=== PATIENT | male | born 1960 | race Caucasian/White ===

== ENCOUNTER 2017-07-27 15:31 | Emergency (ER) | payer OTHER ==
[~2017-07-27] VITALS: Ht 170.2 cm; Wt 135.2 kg
[~2017-07-27 15:31] MED LIST: ACET325 PO; ACET500 PO; ALLERCLEAR10 MG PO; AMIT50 PO; AMLO10 PO; AMOCLA875 PO; ANTI ANXIETY; ASPI325 PO; ASPI81CH PO; ASPI81EC; ASPI81EC PO; Alprazolam0.5 MG PO; BACL10 PO; BACL20; BACL20 PO; BEPOTASTINE OU; BEPREVE; BEPREVE OU; BUPR150ER PO; BUTASPCAFT PO; Budeprion Xl300 MG PO; CEPH500 PO; CITA20; CITA20 PO; CLON.5 PO; CLON1 PO; CLOP75 PO; CLOT1TC TOP; COUMADIN; CRUTCH USE; CYCL10 PO; Cyclobenzaprine5 MG PO; DILT120ERA PO; DRON400T; DRON400T PO; DULO60 PO; DULOXETINE HCL60 MG PO; Desyrel50 MG PO; ENBREL; ETAN25I SC; ETAN50I INJ; ETAN50I SC; FLUT.05NI; FLUT220OIA IH; FLUT44OIA IH; Flonase 0.05% N16 GM; Flovent Diskus50 MCG IH; GABA300 PO; GEMF600; GEMF600 PO; GLIP5 PO; GLUC500 PO; GLUCOSAMINE-CH1 EAC3 PO; Glucosamine Ch1 EAC4 PO; HYDACE10B PO; HYDACE5; HYDACE5 PO; HYDACE5325 PO; HYDHCL25 PO; HYDPAM25 PO; Hair, Skin & N1 EACH PO; Hydrocodone-Ap1 EA20 PO; KETO10 PO; LATA.005SO; LATA.005SO BOTHEYES; LATA.005SO OD; LOPE2C PO; LORA.5 PO; LORA10 PO; LORA10ER PO; LOSHYD; Loratadine10 MG PO; MELO7.5 PO; MENS VITAMIN PO; METO10 PO; METO100ER PO; METO50 PO; METO50ER; METO50ER PO; MOMENI; MSM; MULTAQ; MULTIVITAMIN; MULVITMINE PO; MULVITMINF PO; Metoprolol Tar100 MG PO; Mobic15 MG PO; NORT25; NORT25 PO; NYST100TC TOP; Norco 5-325 Ta1 EACH PO; OLME20-12. PO; OMEG1CAP30 PO; OMEGA-3 ACID ETH1 GM PO; OMEP20ER PO; OMEP40CA12 PO; OXYACE5T PO; PANT20 PO; PRAV10 PO; PRAV20 PO; PRAVASTATIN SOD10 MG PO; PROM25 PO; Pantoprazole So20 MG PO; Pedi-Dri 100,0060 GM TOP; Percocet 5-3251 EACH PO; Prednisone20 MG PO; RANI150; RANI150 PO; RANI150EL; RXOXYACE PO; SIMV40 PO; SULTRIDS PO; TAMS.4ER PO; TIMDOROPSO BOTHEYES; TIMO.25OPS BOTHEYES; TIMOPTIC 0.25%1 EACH OP; TRAZ50; TRAZ50 PO; VICODIN ES 7.51 EACH PO; WARF1 PO; WARF10 PO; WARF2.5 PO; WARF7.5 PO; XARELTO10 MG PO; XARELTO20 MG PO; ZESTORETIC 20-1 EACH PO; ZESTORETIC 20-121 EA PO; [UNRECOGNIZED DRUG - OTHER]; [UNRECOGNIZED DRUG - OTHER]
[2017-07-27] MEDS ORDERED: COSENTYX P150 MG/1 M SQ (15:44)
[2017-07-27] MEDS ORDERED: HYDCHL25 PO (15:46)
[2017-07-27] MEDS ORDERED: GLIP5ER PO (15:46)
[2017-07-27] MEDS ORDERED: LISI20 PO (15:47)
[2017-07-27] MEDS ORDERED: DRON400T (15:49)
[2017-07-27] MEDS ORDERED: PANT20 PO (15:50)
[2017-07-27 16:11] LABS: BASOPHILS ABSOLUTE AUTO 0.08 K/mm3 (0.00-0.23); BASOPHILS PERCENT AUTO 1 % (0-2); EOSINOPHILS ABSOLUTE AUTO 0.31 K/mm3 (0.00-0.68); EOSINOPHILS PERCENT AUTO 3 % (0-6); Hematocrit 41.7 % (37.0-53.0); Hemoglobin 14.5 g/dL (13.5-17.5); IMMATURE GRAN ABSOLUTE AUTO 0.04 K/mm3 (0.00-0.10); IMMATURE GRAN PERCENT AUTO 0 % (0-1); LYMPHOCYTES ABSOLUTE AUTO 2.22 K/mm3 (0.84-5.20); LYMPHOCYTES PERCENT AUTO 24 % (21-46); MONOCYTES ABSOLUTE AUTO 0.96 K/mm3 (0.16-1.47); MONOCYTES PERCENT AUTO 10 % (4-13); Mean Corpuscular HGB 28.9 pg (26.0-34.0); Mean Corpuscular HGB Conc 34.8 g/dL (31.5-36.5); Mean Corpuscular Volume 83 fL (80-100); Mean Platelet Volume 10.5 fL (9.1-12.4); NEUTROPHILS ABSOLUTE AUTO 5.63 K/mm3 (1.96-9.15); NEUTROPHILS PERCENT AUTO 61 % (41-73); Platelet Count 265 K/mm3 (150-400); RDW Coefficient Variation 13.8 % (11.7-14.2); RDW Standard Deviation 41.8 fL (35.1-46.3); Red Blood Cell Count 5.01 M/mm3 (4.30-5.90); White Blood Cell Count 9.24 K/mm3 (4.00-11.30)
[2017-07-27 16:22] LABS: Alanine Aminotransfer (ALT/SGP 31 U/L (12-78); Albumin, Blood 4.1 g/dL (3.4-5.0); Albumin/Globulin Ratio 1.2 (0.8-1.8); Alk Phos 68 U/L (50-136); Anion Gap 9 mmol/L (6-16); Aspartate Aminotrans (AST/SGOT 21 U/L (12-37); Bilirubin, Total 0.6 mg/dL (0.1-1.0); Blood Urea Nitrogen 14 mg/dL (8-24); Bun/Creatinine Ratio 15.4 (12.0-20.0); CO2, Blood 27 mmol/L (21-32); Calcium, Blood 8.5 mg/dL (8.5-10.1); Chloride, Blood 103 mmol/L (98-108); Creatinine, Blood 0.91 mg/dL (0.60-1.20); Globulin, Blood 3.3 g/dL (2.2-4.0); Glomerular Filtration Rate >60 (60-); Glucose, Blood 177 mg/dL (70-99); Potassium, Blood 3.6 mmol/L (3.5-5.5); Sodium, Blood 139 mmol/L (136-145); Total Protein, Blood 7.4 g/dL (6.4-8.2); Troponin I <0.015 ng/mL (0.000-0.040)
[2017-07-27] MEDS ORDERED: SUCR1 PO (19:27)
== END 2017-07-27 20:06 | disposition home or self-care (01) ==
LOC: ER 15:31
PROVIDERS: Internal Medicine
DX: K22.4 Dyskinesia of esophagus (principal); I10 Essential (primary) hypertension; E11.9 Type 2 diabetes mellitus without complications; F32.9 Major depressive disorder, single episode, unspecified; F41.9 Anxiety disorder, unspecified; I48.91 Unspecified atrial fibrillation; F17.210 Nicotine dependence, cigarettes, uncomplicated; Z88.6 Allergy status to analgesic agent; Z79.899 Other long term (current) drug therapy; Z79.84 Long term (current) use of oral hypoglycemic drugs
CPT/HCPCS: 71046; 80053; 84484; 85025; 93005; 93010; 96374; 96375; 99283; C9113; J3490

== ENCOUNTER → 2017-08-09 | Outpatient (CLI) | payer OTHER ==
[~2017-08-09] MED LIST changes: +COSENTYX P150 MG/1 M SQ; +GLIP5ER PO; +HYDCHL25 PO; +LISI20 PO; +SUCR1 PO
[2017-08-09 13:10] LABS: Adenovirus F 40/41 Not Detected (NOT DETECT); Astrovirus Not Detected (NOT DETECT); Campylobacter Sp Not Detected (NOT DETECT); Cryptosporidium Not Detected (NOT DETECT); Cyclospora Cayetanensis Not Detected (NOT DETECT); E. Coli O157 Not Detected (NOT DETECT); Entamoeba Histolytica Not Detected (NOT DETECT); Enteroaggregative E. coli-EAEC Not Detected (NOT DETECT); Enteropathogenic E. coli-EPEC Not Detected (NOT DETECT); Enterotoxigenic E. coli-ETEC Not Detected (NOT DETECT); Giardia Lamblia Not Detected (NOT DETECT); Norovirus GI/GII Not Detected (NOT DETECT); Plesiomonas Shigelloides Not Detected (NOT DETECT); Rotavirus A Not Detected (NOT DETECT); Salmonella Sp Not Detected (NOT DETECT); Sapovirus Not Detected (NOT DETECT); Shiga Toxin-prod E. coli-STEC Not Detected (NOT DETECT); Shigella/Enteroin E. coli-EIEC Not Detected (NOT DETECT); Vibrio Cholerae Not Detected (NOT DETECT); Vibrio Sp Not Detected (NOT DETECT); Yersinia Enterocolitica Not Detected (NOT DETECT)
== END | disposition home or self-care (01) ==
LOC: LAB SHORT 12:33 → LAB 12:33 → LAB FUT 08-03 17:30
PROVIDERS: Hospitalist
DX: R19.7 Diarrhea, unspecified (principal)
CPT/HCPCS: 87507

== ENCOUNTER 2017-10-08 20:14 | Emergency (ER) | payer OTHER ==
[~2017-10-08] VITALS: Ht 172.7 cm; Wt 129.7 kg
[2017-10-08 20:58] LABS: BASOPHILS ABSOLUTE AUTO 0.14 K/mm3 (0.00-0.23); BASOPHILS PERCENT AUTO 1 % (0-2); EOSINOPHILS ABSOLUTE AUTO 0.39 K/mm3 (0.00-0.68); EOSINOPHILS PERCENT AUTO 4 % (0-6); Hematocrit 43.3 % (37.0-53.0); Hemoglobin 14.7 g/dL (13.5-17.5); IMMATURE GRAN ABSOLUTE AUTO 0.03 K/mm3 (0.00-0.10); IMMATURE GRAN PERCENT AUTO 0 % (0-1); LYMPHOCYTES ABSOLUTE AUTO 3.16 K/mm3 (0.84-5.20); LYMPHOCYTES PERCENT AUTO 33 % (21-46); MONOCYTES ABSOLUTE AUTO 0.99 K/mm3 (0.16-1.47); MONOCYTES PERCENT AUTO 10 % (4-13); Mean Corpuscular HGB 28.7 pg (26.0-34.0); Mean Corpuscular HGB Conc 33.9 g/dL (31.5-36.5); Mean Corpuscular Volume 84 fL (80-100); Mean Platelet Volume 10.5 fL (9.1-12.4); NEUTROPHILS ABSOLUTE AUTO 4.98 K/mm3 (1.96-9.15); NEUTROPHILS PERCENT AUTO 52 % (41-73); Platelet Count 302 K/mm3 (150-400); RDW Coefficient Variation 13.2 % (11.7-14.2); RDW Standard Deviation 41.2 fL (35.1-46.3); Red Blood Cell Count 5.13 M/mm3 (4.30-5.90); White Blood Cell Count 9.69 K/mm3 (4.00-11.30)
[2017-10-08 21:13] LABS: Alanine Aminotransfer (ALT/SGP 26 U/L (12-78); Albumin, Blood 3.8 g/dL (3.4-5.0); Albumin/Globulin Ratio 1.1 (0.8-1.8); Alk Phos 62 U/L (50-136); Anion Gap 8 mmol/L (6-16); Aspartate Aminotrans (AST/SGOT 17 U/L (12-37); Bilirubin, Total 0.5 mg/dL (0.1-1.0); Blood Urea Nitrogen 14 mg/dL (8-24); Bun/Creatinine Ratio 15.9 (12.0-20.0); CO2, Blood 29 mmol/L (21-32); Chloride, Blood 104 mmol/L (98-108); Creatinine, Blood 0.88 mg/dL (0.60-1.20); Globulin, Blood 3.6 g/dL (2.2-4.0); Glomerular Filtration Rate >60 (60-); Glucose, Blood 139 mg/dL (70-99); Sodium, Blood 141 mmol/L (136-145); Total Protein, Blood 7.4 g/dL (6.4-8.2); Troponin I <0.015 ng/mL (0.000-0.040)
[2017-10-08] MEDS ORDERED: MIRALAX17 GM PO (21:59)
[2017-10-08] MEDS ORDERED: Bentyl10 MG PO (21:59)
== END 2017-10-08 22:25 | disposition home or self-care (01) ==
LOC: ER 20:14
PROVIDERS: Emergency Medicine
DX: R10.9 Unspecified abdominal pain (principal); I10 Essential (primary) hypertension; E11.9 Type 2 diabetes mellitus without complications; F32.9 Major depressive disorder, single episode, unspecified; F41.9 Anxiety disorder, unspecified; I48.91 Unspecified atrial fibrillation; F17.210 Nicotine dependence, cigarettes, uncomplicated; Z88.6 Allergy status to analgesic agent; Z79.899 Other long term (current) drug therapy
CPT/HCPCS: 71046; 80053; 83690; 84484; 85025; 93005; 93010; 99285-25

== ENCOUNTER 2018-02-08 13:11 | Emergency (ER) | payer OTHER ==
[~2018-02-08] VITALS: Ht 177.8 cm; Wt 127.0 kg
[~2018-02-08 13:11] MED LIST changes: +Bentyl10 MG PO; -COSENTYX P150 MG/1 M SQ; -GLIP5ER PO; -HYDCHL25 PO; -LISI20 PO; +MIRALAX17 GM PO; -TAMS.4ER PO
[2018-02-08] MEDS ORDERED: Norco 5-325 Ta1 EACH PO (13:56)
== END 2018-02-08 14:09 | disposition home or self-care (01) ==
LOC: ER 13:11
DX: M54.5 Low back pain (principal); G89.29 Other chronic pain; Z88.6 Allergy status to analgesic agent; Z88.8 Allergy status to other drugs, medicaments and biological substances; Z79.899 Other long term (current) drug therapy; G43.909 Migraine, unspecified, not intractable, without status migrainosus; I10 Essential (primary) hypertension; E11.9 Type 2 diabetes mellitus without complications; F32.9 Major depressive disorder, single episode, unspecified; F41.9 Anxiety disorder, unspecified; I48.91 Unspecified atrial fibrillation; F17.210 Nicotine dependence, cigarettes, uncomplicated
CPT/HCPCS: 99283

== ENCOUNTER 2018-04-02 13:29 | Emergency (ER) | payer OTHER ==
[~2018-04-02] VITALS: Ht 177.8 cm; Wt 117.9 kg
[2018-04-02 14:22] LABS: BASOPHILS ABSOLUTE AUTO 0.13 K/mm3 (0.00-0.23); BASOPHILS PERCENT AUTO 1 % (0-2); EOSINOPHILS ABSOLUTE AUTO 0.41 K/mm3 (0.00-0.68); EOSINOPHILS PERCENT AUTO 3 % (0-6); Hematocrit 44.8 % (37.0-53.0); Hemoglobin 15.1 g/dL (13.5-17.5); IMMATURE GRAN ABSOLUTE AUTO 0.06 K/mm3 (0.00-0.10); IMMATURE GRAN PERCENT AUTO 1 % (0-1); LYMPHOCYTES ABSOLUTE AUTO 2.27 K/mm3 (0.84-5.20); LYMPHOCYTES PERCENT AUTO 17 % (21-46); MONOCYTES ABSOLUTE AUTO 1.03 K/mm3 (0.16-1.47); MONOCYTES PERCENT AUTO 8 % (4-13); Mean Corpuscular HGB Conc 33.7 g/dL (31.5-36.5); Mean Corpuscular Volume 86 fL (80-100); Mean Platelet Volume 10.2 fL (9.1-12.4); NEUTROPHILS ABSOLUTE AUTO 9.13 K/mm3 (1.96-9.15); NEUTROPHILS PERCENT AUTO 70 % (41-73); Platelet Count 294 K/mm3 (150-400); RDW Standard Deviation 44.4 fL (35.1-46.3); Red Blood Cell Count 5.21 M/mm3 (4.30-5.90); White Blood Cell Count 13.03 K/mm3 (4.00-11.30)
[2018-04-02 14:43] LABS: Anion Gap 10 mmol/L (6-16); Blood Urea Nitrogen 10 mg/dL (8-24); Bun/Creatinine Ratio 8.8 (12.0-20.0); CO2, Blood 25 mmol/L (21-32); Chloride, Blood 106 mmol/L (98-108); Creatinine, Blood 1.13 mg/dL (0.60-1.20); Glomerular Filtration Rate >60 (60-); Glucose, Blood 71 mg/dL (70-99); Sodium, Blood 141 mmol/L (136-145); Troponin I <0.015 ng/mL (0.000-0.040)
== END 2018-04-02 17:08 | disposition home or self-care (01) ==
LOC: ER 13:29
PROVIDERS: Physician Assistant
DX: J06.9 Acute upper respiratory infection, unspecified (principal); I10 Essential (primary) hypertension; F41.9 Anxiety disorder, unspecified; E11.9 Type 2 diabetes mellitus without complications; E78.5 Hyperlipidemia, unspecified; K21.9 Gastro-esophageal reflux disease without esophagitis; F17.210 Nicotine dependence, cigarettes, uncomplicated
CPT/HCPCS: 36415; 80048; 84484; 85025; 93005; 93010; 99283-25

== ENCOUNTER 2018-04-04 16:29 | Observation (INO) | payer OTHER ==
[~2018-04-04] VITALS: Ht 177.8 cm; Wt 122.5 kg
[2018-04-04 17:59] LABS: BASOPHILS PERCENT AUTO 1 % (0-2); EOSINOPHILS ABSOLUTE AUTO 0.45 K/mm3 (0.00-0.68); EOSINOPHILS PERCENT AUTO 4 % (0-6); Hematocrit 45.3 % (37.0-53.0); Hemoglobin 15.1 g/dL (13.5-17.5); IMMATURE GRAN ABSOLUTE AUTO 0.07 K/mm3 (0.00-0.10); IMMATURE GRAN PERCENT AUTO 1 % (0-1); LYMPHOCYTES ABSOLUTE AUTO 2.02 K/mm3 (0.84-5.20); LYMPHOCYTES PERCENT AUTO 18 % (21-46); MONOCYTES ABSOLUTE AUTO 0.97 K/mm3 (0.16-1.47); MONOCYTES PERCENT AUTO 9 % (4-13); Mean Corpuscular HGB 28.3 pg (26.0-34.0); Mean Corpuscular HGB Conc 33.3 g/dL (31.5-36.5); Mean Corpuscular Volume 85 fL (80-100); Mean Platelet Volume 10.6 fL (9.1-12.4); NEUTROPHILS ABSOLUTE AUTO 7.58 K/mm3 (1.96-9.15); NEUTROPHILS PERCENT AUTO 68 % (41-73); Platelet Count 279 K/mm3 (150-400); RDW Coefficient Variation 13.8 % (11.7-14.2); RDW Standard Deviation 42.7 fL (35.1-46.3); Red Blood Cell Count 5.33 M/mm3 (4.30-5.90); White Blood Cell Count 11.19 K/mm3 (4.00-11.30)
[2018-04-04 18:01] LABS: Source, Urine Clean Catch
[2018-04-04 18:10] LABS: Bilirubin, Urine Neg (Neg); Blood, Urine 4+ (Neg); Glucose Qualitative, Urine Neg (Neg); Ketones, Urine Neg (Neg); Leukocyte Esterase, Urine Neg (Neg); Nitrite, Urine Neg (Neg); Protein, Urine 2+ (Neg); Specific Gravity, Urine 1.015 (1.003-1.022); Urobilinogen, Urine NORM (Normal)
[2018-04-04 18:19] LABS: Salicylate <1.7 mg/dL (2.8-20.0)
[2018-04-04 18:20] LABS: Alanine Aminotransfer (ALT/SGP 29 U/L (12-78); Albumin, Blood 4.2 g/dL (3.4-5.0); Albumin/Globulin Ratio 1.2 (0.8-1.8); Alk Phos 60 U/L (50-136); Anion Gap 9 mmol/L (6-16); Aspartate Aminotrans (AST/SGOT 16 U/L (12-37); Bilirubin, Total 0.6 mg/dL (0.1-1.0); Blood Urea Nitrogen 15 mg/dL (8-24); Bun/Creatinine Ratio 18.3 (12.0-20.0); CO2, Blood 27 mmol/L (21-32); Calcium, Blood 8.7 mg/dL (8.5-10.1); Chloride, Blood 102 mmol/L (98-108); Creatinine, Blood 0.82 mg/dL (0.60-1.20); Globulin, Blood 3.6 g/dL (2.2-4.0); Glomerular Filtration Rate >60 (60-); Glucose, Blood 89 mg/dL (70-99); Potassium, Blood 3.8 mmol/L (3.5-5.5); Sodium, Blood 138 mmol/L (136-145); Total Protein, Blood 7.8 g/dL (6.4-8.2)
[2018-04-04 18:23] LABS: Acetaminophen, Random <2.0 ug/mL (10.0-30.0); Ethanol (Alcohol), Blood, Med <3 mg/dL
[2018-04-04 18:38] LABS: U Amphetamine Screen Not Detected; U Barbituate Screen Not Detected; U Benzodiazapine Screen Not Detected; U Buprenorphine Screen Not Detected; U Cannabinoids Screen Not Detected; U Cocaine Screen Not Detected; U Methadone Screen Not Detected; U Methamphetamine Screen Not Detected; U Opiates Screen Not Detected; U Oxycodone Screen Not Detected; U Phencyclidine Screen Not Detected; U Propoxyphene Screen Not Detected
[2018-04-04 18:46] LABS: Appearance, Urine Clear (Clear); Color, Urine Yellow (P-Yellow)
[2018-04-04 18:47] LABS: Bacteria Rare /hpf; Squamous Epithelial Cells Not Seen /hpf (Few); White Blood Cells, Urine Not Seen /hpf (0-5)
[2018-04-04] MEDS ORDERED: **INCOMPLETE MED REC (20:41)
[2018-04-04] MEDS ORDERED: TAMS.4ER PO (21:07)
[2018-04-04] MEDS ORDERED: COSENTYX P150 MG/1 M SQ (21:09)
[2018-04-04] MEDS ORDERED: LISI20 PO (21:11)
[2018-04-04] MEDS ORDERED: DRON400T PO (21:15)
[2018-04-04] MEDS ORDERED: Metoprolol Tar100 MG PO (21:16)
[2018-04-04] MEDS ORDERED: Zantac150 MG PO (21:17)
[2018-04-04] MEDS ORDERED: Loratadine10 MG PO (21:18)
[2018-04-04] MEDS ORDERED: GLIP5ER PO (21:19)
[2018-04-04] MEDS ORDERED: Flonase 0.05% N16 GM (21:19)
[2018-04-04] MEDS ORDERED: PANT20 PO (21:19)
[2018-04-04] MEDS ORDERED: HYDCHL25 PO (21:20)
[2018-04-04] MEDS ORDERED: SUCR1 PO (21:21)
[2018-04-04] MEDS ORDERED: OMEG1CAP30 PO (21:22)
== END 2018-04-05 11:44 | disposition home or self-care (01) ==
LOC: ER 16:29 → EOR 16:30
PROVIDERS: Physician Assistant; ADMIT Emergency Medicine
DX: F33.2 Major depressive disorder, recurrent severe without psychotic features (principal); F41.9 Anxiety disorder, unspecified; I10 Essential (primary) hypertension; E78.5 Hyperlipidemia, unspecified; E11.9 Type 2 diabetes mellitus without complications; K21.9 Gastro-esophageal reflux disease without esophagitis; G47.30 Sleep apnea, unspecified; F17.210 Nicotine dependence, cigarettes, uncomplicated; Z79.899 Other long term (current) drug therapy; Z79.84 Long term (current) use of oral hypoglycemic drugs
CPT/HCPCS: 36415; 80053; 81001; 84443; 85025; 99285; C9113; G0378; G0480; Q3014

== ENCOUNTER 2018-07-09 13:40 | Emergency (ER) | payer OTHER ==
[~2018-07-09] VITALS: Ht 177.8 cm; Wt 117.9 kg
[~2018-07-09 13:40] MED LIST changes: +**INCOMPLETE MED REC; +COSENTYX P150 MG/1 M SQ; +GLIP5ER PO; +HYDCHL25 PO; +LISI20 PO; +TAMS.4ER PO; +Zantac150 MG PO
[2018-07-09 14:53] LABS: Alanine Aminotransfer (ALT/SGP 26 U/L (12-78); Albumin, Blood 3.9 g/dL (3.4-5.0); Albumin/Globulin Ratio 1.3 (0.8-1.8); Alk Phos 61 U/L (50-136); Anion Gap 8 mmol/L (6-16); Aspartate Aminotrans (AST/SGOT 17 U/L (12-37); Bilirubin, Total 0.5 mg/dL (0.1-1.0); Blood Urea Nitrogen 11 mg/dL (8-24); Bun/Creatinine Ratio 13.2 (12.0-20.0); CO2, Blood 25 mmol/L (21-32); Calcium, Blood 8.2 mg/dL (8.5-10.1); Chloride, Blood 108 mmol/L (98-108); Creatinine, Blood 0.83 mg/dL (0.60-1.20); Glomerular Filtration Rate >60 (60-); Glucose, Blood 66 mg/dL (70-99); Potassium, Blood 3.7 mmol/L (3.5-5.5); Sodium, Blood 141 mmol/L (136-145); Total Protein, Blood 6.9 g/dL (6.4-8.2)
[2018-07-09 15:26] LABS: BASOPHILS ABSOLUTE AUTO 0.09 K/mm3 (0.00-0.23); BASOPHILS PERCENT AUTO 1 % (0-2); EOSINOPHILS PERCENT AUTO 3 % (0-6); Hematocrit 40.8 % (37.0-53.0); Hemoglobin 13.9 g/dL (13.5-17.5); IMMATURE GRAN ABSOLUTE AUTO 0.06 K/mm3 (0.00-0.10); IMMATURE GRAN PERCENT AUTO 1 % (0-1); LYMPHOCYTES ABSOLUTE AUTO 1.95 K/mm3 (0.84-5.20); LYMPHOCYTES PERCENT AUTO 18 % (21-46); MONOCYTES PERCENT AUTO 8 % (4-13); Mean Corpuscular HGB 29.2 pg (26.0-34.0); Mean Corpuscular HGB Conc 34.1 g/dL (31.5-36.5); Mean Corpuscular Volume 86 fL (80-100); Mean Platelet Volume 11.2 fL (9.1-12.4); NEUTROPHILS ABSOLUTE AUTO 7.37 K/mm3 (1.96-9.15); NEUTROPHILS PERCENT AUTO 69 % (41-73); Platelet Count 303 K/mm3 (150-400); Red Blood Cell Count 4.76 M/mm3 (4.30-5.90); White Blood Cell Count 10.67 K/mm3 (4.00-11.30)
== END 2018-07-09 16:59 | disposition home or self-care (01) ==
LOC: ER 13:40
PROVIDERS: Physician Assistant
DX: R51 Headache (principal); I10 Essential (primary) hypertension; E78.5 Hyperlipidemia, unspecified; F41.9 Anxiety disorder, unspecified; E11.9 Type 2 diabetes mellitus without complications; K21.9 Gastro-esophageal reflux disease without esophagitis; F32.9 Major depressive disorder, single episode, unspecified; Z88.6 Allergy status to analgesic agent; Z88.8 Allergy status to other drugs, medicaments and biological substances; Z79.899 Other long term (current) drug therapy; Z87.891 Personal history of nicotine dependence
CPT/HCPCS: 36415; 70450; 80053; 85025; 96374; 96375; 99284-25; J1100; J1200; J1885; J2765; J7030

== ENCOUNTER 2018-12-16 09:45 | Day surgery (SDC) | payer OTHER ==
[~2018-12-16] VITALS: Ht 172.7 cm; Wt 129.0 kg
[~2018-12-16 09:45] MED LIST changes: +BISA5EC; +CLEM1.34 PO; +HYDR1TAB94 PO; +TRAZ100 PO
--- NOTE | 2018-12-16 12:40 | NUR ---
PT TO RECOVERY POST PROCEDURE. PT IS AWAKE AND ORIENTED, COOPERATIVE. PT DENIES CHEST PAIN/PRESSSURE POST PROCEDURE. MONITOR SR 80, B/P 128/67, AFEBRILE, SPO2 91-92% RA. R RADIAL SITE NO SWELLING/HEMATOMA, TR BAND IN PLACE. PT TAKING SIPS OF APPLE JUICE WITHOUT PROBLEM.
--- NOTE | 2018-12-16 14:15 | NUR ---
PT UP TO BATHROOM, SITE UNCHANGED WITH ACTIVITY.
--- NOTE | 2018-12-16 16:00 | NUR ---
PT DRESSED SELF WITHOUT ASSISTANCE, SITE UNCHANGED. TR BAND REMOVED, CLOTH DOT, WRITST IMMOBILIZER AND SLING IN PLACE-PER PT REQUEST; IV REMOVED-CANNULA INTACT.
--- NOTE | 2018-12-16 16:15 | NUR ---
PT RECEIVED DISCHARGE INSTRUCTIONS, MED LIST AND "AFTER CARE"INSTRUCTIONS; VERBALIZED GOOD UNDERSTANDING. PT LEFT FACILITY VIA W/C, CONDITION STABLE.
== END 2018-12-16 16:15 | disposition home or self-care (01) ==
LOC: MHTC 09:45
PROC: 4A023N7 Measurement of Cardiac Sampling and Pressure, Left Heart, Percutaneous Approach (ICD-10-PCS; principal; 2018-12-16)
PROC: B201YZZ Plain Radiography of Multiple Coronary Arteries using Other Contrast (ICD-10-PCS; principal; 2018-12-16)
PROC: B205YZZ Plain Radiography of Left Heart using Other Contrast (ICD-10-PCS; principal; 2018-12-16)
DX: I25.119 Atherosclerotic heart disease of native coronary artery with unspecified angina pectoris (principal); I10 Essential (primary) hypertension; E78.00 Pure hypercholesterolemia, unspecified; E66.01 Morbid (severe) obesity due to excess calories; G47.33 Obstructive sleep apnea (adult) (pediatric); G89.29 Other chronic pain; M25.569 Pain in unspecified knee; K76.0 Fatty (change of) liver, not elsewhere classified; R31.0 Gross hematuria; Z79.899 Other long term (current) drug therapy; Z88.6 Allergy status to analgesic agent; Z79.01 Long term (current) use of anticoagulants; Z87.891 Personal history of nicotine dependence; Z68.41 Body mass index [BMI] 40.0-44.9, adult; Z99.89 Dependence on other enabling machines and devices
CPT/HCPCS: 82947; 93458; 99152; 99153; C1769; C1894; J1644; J2250; J3010; J7030; Q9967

== ENCOUNTER 2019-02-25 14:46 | Emergency (ER) | payer OTHER ==
[~2019-02-25] VITALS: Ht 172.7 cm; Wt 113.4 kg
[2019-02-25 17:14] LABS: BASOPHILS PERCENT AUTO 1 % (0-2); EOSINOPHILS ABSOLUTE AUTO 0.23 K/mm3 (0.00-0.68); EOSINOPHILS PERCENT AUTO 2 % (0-6); Hematocrit 50.1 % (37.0-53.0); Hemoglobin 16.6 g/dL (13.5-17.5); IMMATURE GRAN ABSOLUTE AUTO 0.04 K/mm3 (0.00-0.10); IMMATURE GRAN PERCENT AUTO 0 % (0-1); LYMPHOCYTES ABSOLUTE AUTO 2.03 K/mm3 (0.84-5.20); LYMPHOCYTES PERCENT AUTO 21 % (21-46); MONOCYTES ABSOLUTE AUTO 0.92 K/mm3 (0.16-1.47); MONOCYTES PERCENT AUTO 9 % (4-13); Mean Corpuscular HGB 28.3 pg (26.0-34.0); Mean Corpuscular HGB Conc 33.1 g/dL (31.5-36.5); Mean Corpuscular Volume 86 fL (80-100); Mean Platelet Volume 10.9 fL (9.1-12.4); NEUTROPHILS ABSOLUTE AUTO 6.45 K/mm3 (1.96-9.15); NEUTROPHILS PERCENT AUTO 66 % (41-73); Platelet Count 303 K/mm3 (150-400); RDW Coefficient Variation 14.5 % (11.7-14.2); RDW Standard Deviation 45.2 fL (35.1-46.3); Red Blood Cell Count 5.86 M/mm3 (4.30-5.90); White Blood Cell Count 9.77 K/mm3 (4.00-11.30)
[2019-02-25 17:32] LABS: Anion Gap 6 mmol/L (6-16); Blood Urea Nitrogen 12 mg/dL (8-24); Bun/Creatinine Ratio 14.9 (12.0-20.0); CO2, Blood 29 mmol/L (21-32); Calcium, Blood 8.8 mg/dL (8.5-10.1); Chloride, Blood 105 mmol/L (98-108); Glomerular Filtration Rate >60 (60-); Glucose, Blood 105 mg/dL (70-99); Potassium, Blood 3.5 mmol/L (3.5-5.5); Sodium, Blood 140 mmol/L (136-145)
[2019-02-25] MEDS ORDERED: Norco 5-325 Ta1 EACH PO (17:55)
[2019-02-25] MEDS ORDERED: Doxycycline Hy100 M3 PO (17:55)
== END 2019-02-25 18:07 | disposition home or self-care (01) ==
LOC: ER 14:46
PROVIDERS: Emergency Medicine
DX: K64.8 Other hemorrhoids (principal); N45.1 Epididymitis; I10 Essential (primary) hypertension; E78.5 Hyperlipidemia, unspecified; F41.9 Anxiety disorder, unspecified; E11.9 Type 2 diabetes mellitus without complications; K21.9 Gastro-esophageal reflux disease without esophagitis; F32.9 Major depressive disorder, single episode, unspecified; F17.210 Nicotine dependence, cigarettes, uncomplicated; Z79.899 Other long term (current) drug therapy
CPT/HCPCS: 36415; 46600; 76870; 80048; 85025; 96372-59; 96374-59; 99284-25; J0696; J1170

== ENCOUNTER 2019-05-14 17:35 | Emergency (ER) | payer OTHER ==
[~2019-05-14] VITALS: Ht 172.7 cm; Wt 122.5 kg
[~2019-05-14 17:35] MED LIST changes: +Doxycycline Hy100 M3 PO
[2019-05-14] MEDS ORDERED: Simvastatin40 MG PO (17:47)
[2019-05-14] MEDS ORDERED: Flomax0.4 MG PO (17:47)
[2019-05-14] MEDS ORDERED: TRAZ100 PO (17:47)
[2019-05-14] MEDS ORDERED: OMEP20ER PO (17:48)
[2019-05-14] MEDS ORDERED: ROCKLATAN 0.022.5 ML OP (17:48)
[2019-05-14] MEDS ORDERED: Zantac150 MG PO (17:48)
[2019-05-14] MEDS ORDERED: DRON400T (17:49)
[2019-05-14] MEDS ORDERED: NITR.4SL SL (17:49)
[2019-05-14] MEDS ORDERED: Loratadine10 MG PO (17:49)
[2019-05-14] MEDS ORDERED: GLIP5 PO (17:50)
[2019-05-14] MEDS ORDERED: HYDCHL25 PO (17:50)
[2019-05-14] MEDS ORDERED: HYDROCODONE-AC1 EAC1 PO (17:50)
[2019-05-14] MEDS ORDERED: COSENTYX P150 MG/1 M SQ (17:51)
[2019-05-14] MEDS ORDERED: CLON.5 PO (17:52)
[2019-05-14] MEDS ORDERED: XARELTO20 MG PO (17:52)
[2019-05-14] MEDS ORDERED: BACL20 PO (17:52)
[2019-05-14] MEDS ORDERED: OLOP.1OPSO BOTHEYES (17:53)
[2019-05-14] MEDS ORDERED: METO100 PO (17:53)
[2019-05-14] MEDS ORDERED: LISI20 PO (17:53)
[2019-05-14] MEDS ORDERED: PANT20 PO (17:53)
[2019-05-14] MEDS ORDERED: CARTIVISC TABL1 EACH PO (17:54)
[2019-05-14] MEDS ORDERED: DULO60 PO (17:54)
[2019-05-14] MEDS ORDERED: BRIMONIDINE TART5 ML BOTHEYES (17:55)
[2019-05-14 18:05] LABS: BASOPHILS ABSOLUTE AUTO 0.15 K/mm3 (0.00-0.23); BASOPHILS PERCENT AUTO 1 % (0-2); EOSINOPHILS ABSOLUTE AUTO 0.32 K/mm3 (0.00-0.68); EOSINOPHILS PERCENT AUTO 2 % (0-6); Hematocrit 52.6 % (37.0-53.0); Hemoglobin 17.5 g/dL (13.5-17.5); IMMATURE GRAN ABSOLUTE AUTO 0.05 K/mm3 (0.00-0.10); IMMATURE GRAN PERCENT AUTO 0 % (0-1); LYMPHOCYTES ABSOLUTE AUTO 2.41 K/mm3 (0.84-5.20); LYMPHOCYTES PERCENT AUTO 18 % (21-46); MONOCYTES ABSOLUTE AUTO 1.24 K/mm3 (0.16-1.47); MONOCYTES PERCENT AUTO 9 % (4-13); Mean Corpuscular HGB 28.5 pg (26.0-34.0); Mean Corpuscular HGB Conc 33.3 g/dL (31.5-36.5); Mean Corpuscular Volume 86 fL (80-100); Mean Platelet Volume 10.7 fL (9.1-12.4); NEUTROPHILS ABSOLUTE AUTO 9.46 K/mm3 (1.96-9.15); NEUTROPHILS PERCENT AUTO 69 % (41-73); Platelet Count 314 K/mm3 (150-400); RDW Coefficient Variation 14.7 % (11.7-14.2); RDW Standard Deviation 46.5 fL (35.1-46.3); Red Blood Cell Count 6.13 M/mm3 (4.30-5.90); White Blood Cell Count 13.63 K/mm3 (4.00-11.30)
[2019-05-14 18:24] LABS: Alanine Aminotransfer (ALT/SGP 27 U/L (12-78); Albumin, Blood 4.2 g/dL (3.4-5.0); Albumin/Globulin Ratio 1.1 (0.8-1.8); Alk Phos 74 U/L (50-136); Anion Gap 2 mmol/L (6-16); Aspartate Aminotrans (AST/SGOT 29 U/L (12-37); Bilirubin, Total 0.5 mg/dL (0.1-1.0); Blood Urea Nitrogen 14 mg/dL (8-24); Bun/Creatinine Ratio 15.6 (12.0-20.0); CO2, Blood 33 mmol/L (21-32); Calcium, Blood 9.3 mg/dL (8.5-10.1); Chloride, Blood 106 mmol/L (98-108); Globulin, Blood 3.7 g/dL (2.2-4.0); Glomerular Filtration Rate >60 (60-); Glucose, Blood 102 mg/dL (70-99); Potassium, Blood 3.8 mmol/L (3.5-5.5); Sodium, Blood 141 mmol/L (136-145); Total Protein, Blood 7.9 g/dL (6.4-8.2); Troponin I <0.015 ng/mL (0.000-0.040)
== END 2019-05-14 19:01 | disposition left against medical advice (07) ==
LOC: ER 17:35
PROVIDERS: Emergency Medicine
DX: K52.9 Noninfective gastroenteritis and colitis, unspecified (principal); K59.00 Constipation, unspecified; D72.829 Elevated white blood cell count, unspecified; I10 Essential (primary) hypertension; I48.91 Unspecified atrial fibrillation; E11.9 Type 2 diabetes mellitus without complications; E78.5 Hyperlipidemia, unspecified; F41.9 Anxiety disorder, unspecified; K21.9 Gastro-esophageal reflux disease without esophagitis; F32.9 Major depressive disorder, single episode, unspecified; G43.909 Migraine, unspecified, not intractable, without status migrainosus; G47.30 Sleep apnea, unspecified; Z88.6 Allergy status to analgesic agent; Z79.899 Other long term (current) drug therapy; Z79.84 Long term (current) use of oral hypoglycemic drugs; Z87.891 Personal history of nicotine dependence
CPT/HCPCS: 36415; 71045; 74176; 80053; 83690; 84484; 85025; 93005; 93010; 96374; 99284-25; J2405

== ENCOUNTER → 2019-07-25 | Outpatient (CLI) | payer OTHER ==
[~2019-07-25] MED LIST changes: +BRIMONIDINE TART5 ML BOTHEYES; +CARTIVISC TABL1 EACH PO; +Flomax0.4 MG PO; +HYDROCODONE-AC1 EAC1 PO; +METO100 PO; +NITR.4SL SL; +OLOP.1OPSO BOTHEYES; +ROCKLATAN 0.022.5 ML OP; +Simvastatin40 MG PO
[2019-08-01 14:48] LABS: Stool Occult Bld Immuno 1 Positive (NEGATIVE)
== END | disposition home or self-care (01) ==
LOC: LAB SHORT 12:00 → LAB 12:00
PROVIDERS: Family Medicine
DX: Z12.11 Encounter for screening for malignant neoplasm of colon (principal)
CPT/HCPCS: G0328

== ENCOUNTER → 2019-09-02 | Outpatient (CLI) | payer OTHER ==
[~2019-09-02] MED LIST changes: +ALLOPURINOL100 M1 PO; +BRIMONIDINE TART5 M2 BOTHEYES; +CLON.1 PO; +COSENTYX P150 MG/1 M SC; +Istalol2.5 ML BOTHEYES; +Klonopin0.5 MG PO; +LISI5 PO; +ROCKLATAN 0.022.5 M1 BOTHEYES
[2019-09-03 10:05] LABS: Stool Occult Bld Immuno 1 Positive (NEGATIVE)
== END | disposition home or self-care (01) ==
LOC: LAB SHORT 08:18 → LAB 08:18 → EDSTATUS 07-12 10:00 → LAB FUT 07-12 10:00
PROVIDERS: Family Medicine
DX: Z12.11 Encounter for screening for malignant neoplasm of colon (principal)
CPT/HCPCS: G0328

== ENCOUNTER 2019-09-09 13:46 | Observation (INO) | payer OTHER ==
[~2019-09-09] VITALS: Ht 172.7 cm; Wt 133.8 kg
[~2019-09-09 13:46] MED LIST changes: -ALLOPURINOL100 M1 PO; -BRIMONIDINE TART5 M2 BOTHEYES; -CLON.1 PO; -COSENTYX P150 MG/1 M SC; -Istalol2.5 ML BOTHEYES; -Klonopin0.5 MG PO; -LISI5 PO; -ROCKLATAN 0.022.5 M1 BOTHEYES
[2019-09-09] MEDS ORDERED: CLON.1 PO (17:50)
[2019-09-09] MEDS ORDERED: BRIMONIDINE TART5 M2 BOTHEYES (17:51)
[2019-09-09] MEDS ORDERED: LISI5 PO (17:51)
[2019-09-09] MEDS ORDERED: Loratadine10 MG PO (17:52)
[2019-09-09] MEDS ORDERED: ROCKLATAN 0.022.5 M1 BOTHEYES (17:52)
[2019-09-09] MEDS ORDERED: Istalol2.5 ML BOTHEYES (17:52)
[2019-09-09] MEDS ORDERED: Metoprolol Tar100 MG PO (17:53)
[2019-09-09] MEDS ORDERED: ALLOPURINOL100 M1 PO (17:53)
[2019-09-09] MEDS ORDERED: GLIP5ER PO (17:53)
[2019-09-09] MEDS ORDERED: Klonopin0.5 MG PO (17:53)
[2019-09-09] MEDS ORDERED: COSENTYX P150 MG/1 M SC (18:00)
[2019-09-09] MEDS ORDERED: DRON400T (18:00)
[2019-09-09] MEDS ORDERED: BACL20 PO (18:01)
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
[2019-09-10 04:19] LABS: BASOPHILS ABSOLUTE AUTO 0.15 K/mm3 (0.00-0.23); BASOPHILS PERCENT AUTO 1 % (0-2); EOSINOPHILS ABSOLUTE AUTO 0.31 K/mm3 (0.00-0.68); EOSINOPHILS PERCENT AUTO 2 % (0-6); Hematocrit 47.2 % (37.0-53.0); Hemoglobin 15.5 g/dL (13.5-17.5); IMMATURE GRAN ABSOLUTE AUTO 0.15 K/mm3 (0.00-0.10); IMMATURE GRAN PERCENT AUTO 1 % (0-1); LYMPHOCYTES ABSOLUTE AUTO 2.22 K/mm3 (0.84-5.20); LYMPHOCYTES PERCENT AUTO 14 % (21-46); MONOCYTES ABSOLUTE AUTO 1.61 K/mm3 (0.16-1.47); MONOCYTES PERCENT AUTO 10 % (4-13); Mean Corpuscular HGB 28.5 pg (26.0-34.0); Mean Corpuscular HGB Conc 32.8 g/dL (31.5-36.5); Mean Corpuscular Volume 87 fL (80-100); Mean Platelet Volume 10.3 fL (9.1-12.4); NEUTROPHILS ABSOLUTE AUTO 11.04 K/mm3 (1.96-9.15); NEUTROPHILS PERCENT AUTO 71 % (41-73); Platelet Count 288 K/mm3 (150-400); RDW Coefficient Variation 14.4 % (11.7-14.2); RDW Standard Deviation 45.5 fL (35.1-46.3); Red Blood Cell Count 5.44 M/mm3 (4.30-5.90); White Blood Cell Count 15.48 K/mm3 (4.00-11.30)
[2019-09-10 04:39] LABS: Anion Gap 5 mmol/L (6-16); Blood Urea Nitrogen 22 mg/dL (8-24); Bun/Creatinine Ratio 23.9 (12.0-20.0); CO2, Blood 29 mmol/L (21-32); Calcium, Blood 8.8 mg/dL (8.5-10.1); Chloride, Blood 104 mmol/L (98-108); Creatinine, Blood 0.92 mg/dL (0.60-1.20); Glomerular Filtration Rate >60 (60-); Glucose, Blood 142 mg/dL (70-99); Potassium, Blood 4.2 mmol/L (3.5-5.5); Sodium, Blood 138 mmol/L (136-145)
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
--- NOTE | 2019-09-10 06:15 | NUR ---
PT REPORTING CHEST PAIN THIS MORNING 6/10. HX OF ANGINA AND REPORTS TAKING NITRO AT HOME PRN. PT REPORTS PAIN IS UNCHANGED FROM BASELINE. CALL PLACE TO HOSPITALIST TO OBTAIN HOME MED ORDER.
--- NOTE | 2019-09-10 17:29 | NUR ---
SUMMARY PT REPORTS ADEQUATE PAIN CONTROL WITH PO MEDS, CURRENTLY RATES 2/10. PT IS 2 PERSON ASSIST, NEEDS REMINDER OF TOE TOUCH WEIGHT BEARING STATUS. PATIENT IS AGREEABLE WITH PLAN TO DISCHARGE TO SNF
[2019-09-11 05:19] LABS: BASOPHILS PERCENT AUTO 1 % (0-2); EOSINOPHILS ABSOLUTE AUTO 0.31 K/mm3 (0.00-0.68); EOSINOPHILS PERCENT AUTO 3 % (0-6); Hematocrit 45.4 % (37.0-53.0); IMMATURE GRAN ABSOLUTE AUTO 0.09 K/mm3 (0.00-0.10); IMMATURE GRAN PERCENT AUTO 1 % (0-1); LYMPHOCYTES ABSOLUTE AUTO 1.98 K/mm3 (0.84-5.20); LYMPHOCYTES PERCENT AUTO 16 % (21-46); MONOCYTES ABSOLUTE AUTO 1.23 K/mm3 (0.16-1.47); MONOCYTES PERCENT AUTO 10 % (4-13); Mean Corpuscular HGB 28.5 pg (26.0-34.0); Mean Corpuscular Volume 86 fL (80-100); Mean Platelet Volume 10.5 fL (9.1-12.4); NEUTROPHILS ABSOLUTE AUTO 8.48 K/mm3 (1.96-9.15); NEUTROPHILS PERCENT AUTO 70 % (41-73); Platelet Count 273 K/mm3 (150-400); RDW Coefficient Variation 14.2 % (11.7-14.2); RDW Standard Deviation 45.2 fL (35.1-46.3); Red Blood Cell Count 5.27 M/mm3 (4.30-5.90); White Blood Cell Count 12.19 K/mm3 (4.00-11.30)
--- NOTE | 2019-09-11 05:26 | NUR ---
SHIFT SUMMARY AA0X4. MEDICATED FOR PAIN X1 PER EMAR. PT STATES RELIEF T/O NIGHT. PATIENT HAS BEEN ASLEEP IN HIS ROOM. NO BRUISING NOTED. PPX4. PT MOVES LEG IN BED AND REPOSITIONS FREQUENTLY. PLAN IS FOR SNF TODAY.
[2019-09-11 05:50] LABS: Anion Gap 7 mmol/L (6-16); Blood Urea Nitrogen 23 mg/dL (8-24); Bun/Creatinine Ratio 21.9 (12.0-20.0); CO2, Blood 26 mmol/L (21-32); Calcium, Blood 8.5 mg/dL (8.5-10.1); Chloride, Blood 104 mmol/L (98-108); Creatinine, Blood 1.05 mg/dL (0.60-1.20); Glomerular Filtration Rate >60 (60-); Glucose, Blood 153 mg/dL (70-99); Potassium, Blood 3.8 mmol/L (3.5-5.5); Sodium, Blood 137 mmol/L (136-145)
--- NOTE | 2019-09-11 15:45 | NUR ---
PT'S NIECE WAS CONTACTED REGARDING PT'S HOME CPAP. SHE REPORTED SHE WILL BRING HIS CPAP TO HIM SO HE CAN GO TO SNF.
--- NOTE | 2019-09-11 17:19 | NUR ---
DISCHARGE REPORT CALLED TO MARLON AT [facility]. PACKET AND PRESCRIPTIONS WERE SENT WITH PT TO [facility]. MARLON WAS NOTIFIED THAT PT HAD NOT HAD A BM BUT HAD BEEN STARTED ON STOOL SOFTENERS. VSS. PT LEFT WITH WHEELCHAIR TRANSPORT.
== END 2019-09-11 17:17 ==
LOC: ER 13:46 → SURS 13:47
PROVIDERS: Internal Medicine; Nurse Practitioner Acute Care; ADMIT Internal Medicine
DX: S32.435A Nondisplaced fracture of anterior column [iliopubic] of left acetabulum, initial encounter for closed fracture (principal); S32.412A Displaced fracture of anterior wall of left acetabulum, initial encounter for closed fracture; S32.422A Displaced fracture of posterior wall of left acetabulum, initial encounter for closed fracture; I10 Essential (primary) hypertension; G47.33 Obstructive sleep apnea (adult) (pediatric); Z11.59 Encounter for screening for other viral diseases; E11.9 Type 2 diabetes mellitus without complications; E78.5 Hyperlipidemia, unspecified; F17.210 Nicotine dependence, cigarettes, uncomplicated; M51.36 Other intervertebral disc degeneration, lumbar region; M51.37 Other intervertebral disc degeneration, lumbosacral region; E66.01 Morbid (severe) obesity due to excess calories; V13.4XXA Pedal cycle driver injured in collision with car, pick-up truck or van in traffic accident, initial encounter; Z79.01 Long term (current) use of anticoagulants; Z79.899 Other long term (current) drug therapy; Z99.89 Dependence on other enabling machines and devices; K21.9 Gastro-esophageal reflux disease without esophagitis; Z88.6 Allergy status to analgesic agent; Z79.84 Long term (current) use of oral hypoglycemic drugs; Z68.41 Body mass index [BMI] 40.0-44.9, adult
CPT/HCPCS: 36415; 72192; 80048; 82947; 85025; 94660; 94762; 97110; 97112; 97162; 97166; 97530; 97535; 99284-25; A9270-GY; G0378; U0002

== ENCOUNTER 2019-12-01 13:45 | Emergency (ER) | payer OTHER ==
[~2019-12-01] VITALS: Ht 177.8 cm; Wt 117.9 kg
[~2019-12-01 13:45] MED LIST changes: -Flomax0.4 MG PO; -Simvastatin40 MG PO
[2019-12-01] MEDS ORDERED: Ranitidine HCl150 M1 PO (14:17)
[2019-12-01 14:22] LABS: BASOPHILS ABSOLUTE AUTO 0.12 K/mm3 (0.00-0.23); BASOPHILS PERCENT AUTO 1 % (0-2); EOSINOPHILS ABSOLUTE AUTO 0.43 K/mm3 (0.00-0.68); EOSINOPHILS PERCENT AUTO 4 % (0-6); Hematocrit 44.4 % (37.0-53.0); Hemoglobin 15.3 g/dL (13.5-17.5); IMMATURE GRAN ABSOLUTE AUTO 0.12 K/mm3 (0.00-0.10); IMMATURE GRAN PERCENT AUTO 1 % (0-1); LYMPHOCYTES ABSOLUTE AUTO 2.44 K/mm3 (0.84-5.20); LYMPHOCYTES PERCENT AUTO 21 % (21-46); MONOCYTES ABSOLUTE AUTO 1.14 K/mm3 (0.16-1.47); MONOCYTES PERCENT AUTO 10 % (4-13); Mean Corpuscular HGB 29.3 pg (26.0-34.0); Mean Corpuscular HGB Conc 34.5 g/dL (31.5-36.5); Mean Corpuscular Volume 85 fL (80-100); Mean Platelet Volume 10.1 fL (9.1-12.4); NEUTROPHILS ABSOLUTE AUTO 7.28 K/mm3 (1.96-9.15); NEUTROPHILS PERCENT AUTO 63 % (41-73); Platelet Count 328 K/mm3 (150-400); RDW Coefficient Variation 13.1 % (11.7-14.2); RDW Standard Deviation 40.5 fL (35.1-46.3); Red Blood Cell Count 5.22 M/mm3 (4.30-5.90); White Blood Cell Count 11.53 K/mm3 (4.00-11.30)
[2019-12-01 14:36] LABS: Alanine Aminotransfer (ALT/SGP 53 U/L (12-78); Albumin, Blood 3.5 g/dL (3.4-5.0); Albumin/Globulin Ratio 0.9 (0.8-1.8); Alk Phos 101 U/L (50-136); Anion Gap 11 mmol/L (6-16); Aspartate Aminotrans (AST/SGOT 33 U/L (12-37); Bilirubin, Total 0.4 mg/dL (0.1-1.0); Blood Urea Nitrogen 17 mg/dL (8-24); Bun/Creatinine Ratio 22.2 (12.0-20.0); CO2, Blood 24 mmol/L (21-32); Calcium, Blood 8.5 mg/dL (8.5-10.1); Chloride, Blood 99 mmol/L (98-108); Creatinine, Blood 0.77 mg/dL (0.60-1.20); Globulin, Blood 3.8 g/dL (2.2-4.0); Glomerular Filtration Rate >60 (60-); Glucose, Blood 379 mg/dL (70-99); Potassium, Blood 4.3 mmol/L (3.5-5.5); Prothrombin Time Results 10.7 Sec (9.7-11.5); Sodium, Blood 134 mmol/L (136-145); Total Protein, Blood 7.3 g/dL (6.4-8.2)
[2019-12-01] MEDS ORDERED: ROCKLATAN 0.022.5 M1 BOTHEYES (14:43)
[2019-12-01] MEDS ORDERED: CLON.1 PO (14:44)
[2019-12-01] MEDS ORDERED: DULO60 PO (14:44)
[2019-12-01] MEDS ORDERED: Simvastatin40 MG PO (14:44)
[2019-12-01] MEDS ORDERED: ALLOPURINOL100 M1 PO (14:44)
[2019-12-01] MEDS ORDERED: Metoprolol Tar100 MG PO (14:44)
[2019-12-01] MEDS ORDERED: GLIP5ER PO (14:44)
[2019-12-01] MEDS ORDERED: XARELTO20 MG PO (14:45)
[2019-12-01] MEDS ORDERED: TRAZ100 PO (14:45)
[2019-12-01] MEDS ORDERED: Istalol2.5 ML BOTHEYES (14:45)
[2019-12-01] MEDS ORDERED: BRIMONIDINE TART5 M2 BOTHEYES (14:45)
[2019-12-01] MEDS ORDERED: HYDCHL12.5 PO (14:46)
[2019-12-01] MEDS ORDERED: Flomax0.4 MG PO (14:46)
[2019-12-01] MEDS ORDERED: LISI5 PO (14:47)
[2019-12-01] MEDS ORDERED: Loratadine10 MG PO (16:41)
[2019-12-01] MEDS ORDERED: DRON400T PO (16:43)
[2019-12-01] MEDS ORDERED: COSENTYX P150 MG/1 M SC (16:45)
[2019-12-01] MEDS ORDERED: BACL20 PO (16:46)
[2019-12-01] MEDS ORDERED: OMEP20ER PO (16:46)
[2019-12-01] MEDS ORDERED: OMEGA-3 FISH O1 EAC6 PO (16:47)
[2019-12-01] MEDS ORDERED: NITR.4SL SL (16:47)
[2019-12-01] MEDS ORDERED: HYDROCODONE-AC1 EAC9 PO (16:48)
[2019-12-01] MEDS ORDERED: Klonopin0.5 MG PO ×2 (16:50→16:51)
[2019-12-01] MEDS ORDERED: TURMERIC500 M2 PO (16:51)
[2019-12-01] MEDS ORDERED: MULTI-VITAMIN1 EAC2 PO (16:52)
[2019-12-01] MEDS ORDERED: ACIDOPHILUS1 EAC3 PO (16:57)
[2019-12-01] MEDS ORDERED: FLUT.05NI (16:58)
[2019-12-01] MEDS ORDERED: OLOPATADINE HCL5 ML BOTHEYES (16:58)
[2019-12-01] MEDS ORDERED: CIDAFLEX TABLE1 EACH PO (17:00)
[2019-12-01 18:21] LABS: Magnesium, Blood 1.9 mg/dL (1.6-2.4); Troponin I <0.015 ng/mL (0.000-0.040)
== END 2019-12-01 18:55 | disposition home or self-care (01) ==
LOC: ER 13:45
PROVIDERS: Physician Assistant
DX: I48.91 Unspecified atrial fibrillation (principal); I10 Essential (primary) hypertension; E78.5 Hyperlipidemia, unspecified; F41.9 Anxiety disorder, unspecified; E11.9 Type 2 diabetes mellitus without complications; K21.9 Gastro-esophageal reflux disease without esophagitis; F32.9 Major depressive disorder, single episode, unspecified; F17.210 Nicotine dependence, cigarettes, uncomplicated; Z88.6 Allergy status to analgesic agent; Z79.01 Long term (current) use of anticoagulants; Z79.899 Other long term (current) drug therapy; Z79.84 Long term (current) use of oral hypoglycemic drugs
CPT/HCPCS: 80053; 83735; 84484; 85025; 85610; 92960; 93005; 93010; 99285-25; J7030

== ENCOUNTER 2020-01-31 12:05 | Emergency (ER) | payer OTHER ==
[~2020-01-31] VITALS: Ht 177.8 cm; Wt 117.9 kg
[~2020-01-31 12:05] MED LIST changes: +ACIDOPHILUS1 EAC3 PO; +ALLOPURINOL100 M1 PO; +BRIMONIDINE TART5 M2 BOTHEYES; +CIDAFLEX TABLE1 EACH PO; +CLON.1 PO; +COSENTYX P150 MG/1 M SC; +Flomax0.4 MG PO; +HYDCHL12.5 PO; +HYDROCODONE-AC1 EAC9 PO; +Istalol2.5 ML BOTHEYES; +Klonopin0.5 MG PO; +LISI5 PO; +MULTI-VITAMIN1 EAC2 PO; +OLOPATADINE HCL5 ML BOTHEYES; +OMEGA-3 FISH O1 EAC6 PO; +ROCKLATAN 0.022.5 M1 BOTHEYES; +Ranitidine HCl150 M1 PO; +Simvastatin40 MG PO; +TURMERIC500 M2 PO
[2020-01-31 12:33] LABS: BASOPHILS ABSOLUTE AUTO 0.12 K/mm3 (0.00-0.23); BASOPHILS PERCENT AUTO 1 % (0-2); EOSINOPHILS ABSOLUTE AUTO 0.36 K/mm3 (0.00-0.68); EOSINOPHILS PERCENT AUTO 3 % (0-6); Hematocrit 42.3 % (37.0-53.0); Hemoglobin 14.4 g/dL (13.5-17.5); IMMATURE GRAN ABSOLUTE AUTO 0.12 K/mm3 (0.00-0.10); IMMATURE GRAN PERCENT AUTO 1 % (0-1); LYMPHOCYTES ABSOLUTE AUTO 2.04 K/mm3 (0.84-5.20); LYMPHOCYTES PERCENT AUTO 19 % (21-46); MONOCYTES ABSOLUTE AUTO 0.95 K/mm3 (0.16-1.47); MONOCYTES PERCENT AUTO 9 % (4-13); Mean Corpuscular HGB 28.7 pg (26.0-34.0); Mean Corpuscular Volume 84 fL (80-100); Mean Platelet Volume 10.5 fL (9.1-12.4); NEUTROPHILS ABSOLUTE AUTO 7.19 K/mm3 (1.96-9.15); NEUTROPHILS PERCENT AUTO 67 % (41-73); Platelet Count 319 K/mm3 (150-400); RDW Coefficient Variation 13.1 % (11.7-14.2); RDW Standard Deviation 39.9 fL (35.1-46.3); Red Blood Cell Count 5.01 M/mm3 (4.30-5.90); White Blood Cell Count 10.78 K/mm3 (4.00-11.30)
[2020-01-31 12:53] LABS: Alanine Aminotransfer (ALT/SGP 42 U/L (12-78); Albumin, Blood 3.7 g/dL (3.4-5.0); Alk Phos 104 U/L (50-136); Anion Gap 6 mmol/L (6-16); Aspartate Aminotrans (AST/SGOT 30 U/L (12-37); Bilirubin, Total 0.4 mg/dL (0.1-1.0); Blood Urea Nitrogen 14 mg/dL (8-24); CO2, Blood 29 mmol/L (21-32); Chloride, Blood 99 mmol/L (98-108); Creatinine, Blood 0.74 mg/dL (0.60-1.20); Globulin, Blood 3.7 g/dL (2.2-4.0); Glomerular Filtration Rate >60 (60-); Glucose, Blood 342 mg/dL (70-99); Potassium, Blood 4.1 mmol/L (3.5-5.5); Sodium, Blood 134 mmol/L (136-145); Total Protein, Blood 7.4 g/dL (6.4-8.2); Troponin I <0.015 ng/mL (0.000-0.040)
== END 2020-01-31 13:16 | disposition home or self-care (01) ==
LOC: ER 12:05
PROVIDERS: Emergency Medicine
DX: R07.9 Chest pain, unspecified (principal); Z79.899 Other long term (current) drug therapy; Z79.01 Long term (current) use of anticoagulants; Z88.6 Allergy status to analgesic agent; Z79.84 Long term (current) use of oral hypoglycemic drugs
CPT/HCPCS: 36415; 71046; 80053; 84484; 85025; 93005; 93010; 99285-25

== ENCOUNTER 2020-04-12 17:29 | Emergency (ER) | payer OTHER ==
[~2020-04-12] VITALS: Ht 177.8 cm; Wt 117.9 kg
[2020-04-12 19:01] LABS: BASOPHILS ABSOLUTE AUTO 0.11 K/mm3 (0.00-0.23); BASOPHILS PERCENT AUTO 1 % (0-2); EOSINOPHILS ABSOLUTE AUTO 0.11 K/mm3 (0.00-0.68); EOSINOPHILS PERCENT AUTO 1 % (0-6); IMMATURE GRAN ABSOLUTE AUTO 0.06 K/mm3 (0.00-0.10); IMMATURE GRAN PERCENT AUTO 1 % (0-1); LYMPHOCYTES ABSOLUTE AUTO 1.63 K/mm3 (0.84-5.20); LYMPHOCYTES PERCENT AUTO 15 % (21-46); MONOCYTES ABSOLUTE AUTO 0.75 K/mm3 (0.16-1.47); MONOCYTES PERCENT AUTO 7 % (4-13); Mean Corpuscular HGB 28.4 pg (26.0-34.0); Mean Corpuscular Volume 84 fL (80-100); Mean Platelet Volume 10.2 fL (9.1-12.4); NEUTROPHILS ABSOLUTE AUTO 8.35 K/mm3 (1.96-9.15); NEUTROPHILS PERCENT AUTO 76 % (41-73); Platelet Count 365 K/mm3 (150-400); RDW Coefficient Variation 13.5 % (11.7-14.2); RDW Standard Deviation 41.1 fL (35.1-46.3); Red Blood Cell Count 5.98 M/mm3 (4.30-5.90); White Blood Cell Count 11.01 K/mm3 (4.00-11.30)
[2020-04-12 19:19] LABS: Alanine Aminotransfer (ALT/SGP 53 U/L (12-78); Albumin, Blood 4.1 g/dL (3.4-5.0); Albumin/Globulin Ratio 1.1 (0.8-1.8); Alk Phos 96 U/L (50-136); Anion Gap 6 mmol/L (6-16); Aspartate Aminotrans (AST/SGOT 28 U/L (12-37); Bilirubin, Total 0.8 mg/dL (0.1-1.0); Blood Urea Nitrogen 12 mg/dL (8-24); Bun/Creatinine Ratio 16.9 (12.0-20.0); CO2, Blood 27 mmol/L (21-32); Calcium, Blood 9.2 mg/dL (8.5-10.1); Chloride, Blood 101 mmol/L (98-108); Creatinine, Blood 0.71 mg/dL (0.60-1.20); Globulin, Blood 3.8 g/dL (2.2-4.0); Glomerular Filtration Rate >60 (60-); Glucose, Blood 247 mg/dL (70-99); Potassium, Blood 3.7 mmol/L (3.5-5.5); Sodium, Blood 134 mmol/L (136-145); Total Protein, Blood 7.9 g/dL (6.4-8.2); Troponin I <0.015 ng/mL (0.000-0.040)
== END 2020-04-12 21:19 | disposition home or self-care (01) ==
LOC: ER 17:29
PROVIDERS: Physician Assistant
DX: R07.89 Other chest pain (principal); F43.9 Reaction to severe stress, unspecified; Z88.6 Allergy status to analgesic agent; Z79.899 Other long term (current) drug therapy
CPT/HCPCS: 36415; 71046; 80053; 83880; 84484; 85025; 93005; 93010; 99285-25

== ENCOUNTER 2020-06-19 18:07 | Emergency (ER) | payer OTHER ==
[~2020-06-19] VITALS: Ht 172.7 cm; Wt 127.0 kg
[2020-06-19] MEDS ORDERED: TRAZ100 PO (18:41)
[2020-06-19] MEDS ORDERED: HYDROCHLOROTH12.5 MG PO (18:45)
[2020-06-19] MEDS ORDERED: PANT20 PO (18:49)
[2020-06-19] MEDS ORDERED: LISI20 (18:50)
[2020-06-19 19:11] LABS: BASOPHILS ABSOLUTE AUTO 0.14 K/mm3 (0.00-0.23); BASOPHILS PERCENT AUTO 1 % (0-2); EOSINOPHILS ABSOLUTE AUTO 0.31 K/mm3 (0.00-0.68); EOSINOPHILS PERCENT AUTO 2 % (0-6); Hematocrit 46.8 % (37.0-53.0); Hemoglobin 16.1 g/dL (13.5-17.5); IMMATURE GRAN ABSOLUTE AUTO 0.08 K/mm3 (0.00-0.10); IMMATURE GRAN PERCENT AUTO 1 % (0-1); LYMPHOCYTES ABSOLUTE AUTO 2.69 K/mm3 (0.84-5.20); LYMPHOCYTES PERCENT AUTO 21 % (21-46); MONOCYTES PERCENT AUTO 8 % (4-13); Mean Corpuscular HGB 28.5 pg (26.0-34.0); Mean Corpuscular HGB Conc 34.4 g/dL (31.5-36.5); Mean Corpuscular Volume 83 fL (80-100); NEUTROPHILS ABSOLUTE AUTO 8.93 K/mm3 (1.96-9.15); NEUTROPHILS PERCENT AUTO 68 % (41-73); Platelet Count 297 K/mm3 (150-400); RDW Coefficient Variation 13.2 % (11.7-14.2); RDW Standard Deviation 39.6 fL (35.1-46.3); Red Blood Cell Count 5.65 M/mm3 (4.30-5.90); White Blood Cell Count 13.15 K/mm3 (4.00-11.30)
[2020-06-19 19:43] LABS: Alanine Aminotransfer (ALT/SGP 31 U/L (12-78); Albumin, Blood 3.4 g/dL (3.4-5.0); Alk Phos 106 U/L (50-136); Anion Gap 5 mmol/L (6-16); Aspartate Aminotrans (AST/SGOT 15 U/L (12-37); Bilirubin, Total 0.4 mg/dL (0.1-1.0); Blood Urea Nitrogen 16 mg/dL (8-24); CO2, Blood 29 mmol/L (21-32); Calcium, Blood 8.8 mg/dL (8.5-10.1); Chloride, Blood 93 mmol/L (98-108); Creatinine, Blood 1.07 mg/dL (0.60-1.20); Globulin, Blood 3.5 g/dL (2.2-4.0); Glomerular Filtration Rate >60 (60-); Glucose, Blood 542 mg/dL (70-99); Sodium, Blood 127 mmol/L (136-145); Total Protein, Blood 6.9 g/dL (6.4-8.2); Troponin I <0.015 ng/mL (0.000-0.040)
== END 2020-06-19 23:00 | disposition home or self-care (01) ==
LOC: ER 18:07
PROVIDERS: Emergency Medicine
DX: R07.9 Chest pain, unspecified (principal); E11.65 Type 2 diabetes mellitus with hyperglycemia; Z88.6 Allergy status to analgesic agent; Z79.899 Other long term (current) drug therapy; Z79.84 Long term (current) use of oral hypoglycemic drugs; Z87.891 Personal history of nicotine dependence
CPT/HCPCS: 71046; 80053; 82947; 83735; 84484; 85025; 93005; 93010; 99285-25; J1815; J7030

== ENCOUNTER 2020-07-15 13:24 | Observation (INO) | payer OTHER ==
[~2020-07-15] VITALS: Ht 172.7 cm; Wt 124.5 kg
[~2020-07-15 13:24] MED LIST changes: +HYDROCHLOROTH12.5 MG PO; +LISI20
[2020-07-15 14:08] LABS: BASOPHILS ABSOLUTE AUTO 0.09 K/mm3 (0.00-0.23); BASOPHILS PERCENT AUTO 1 % (0-2); EOSINOPHILS ABSOLUTE AUTO 0.19 K/mm3 (0.00-0.68); EOSINOPHILS PERCENT AUTO 2 % (0-6); Hematocrit 45.4 % (37.0-53.0); Hemoglobin 15.4 g/dL (13.5-17.5); IMMATURE GRAN ABSOLUTE AUTO 0.06 K/mm3 (0.00-0.10); IMMATURE GRAN PERCENT AUTO 1 % (0-1); LYMPHOCYTES ABSOLUTE AUTO 1.89 K/mm3 (0.84-5.20); LYMPHOCYTES PERCENT AUTO 16 % (21-46); MONOCYTES ABSOLUTE AUTO 0.82 K/mm3 (0.16-1.47); MONOCYTES PERCENT AUTO 7 % (4-13); Mean Corpuscular HGB 29.1 pg (26.0-34.0); Mean Corpuscular HGB Conc 33.9 g/dL (31.5-36.5); Mean Corpuscular Volume 86 fL (80-100); Mean Platelet Volume 10.9 fL (9.1-12.4); NEUTROPHILS ABSOLUTE AUTO 8.68 K/mm3 (1.96-9.15); NEUTROPHILS PERCENT AUTO 74 % (41-73); Platelet Count 287 K/mm3 (150-400); RDW Coefficient Variation 13.8 % (11.7-14.2); RDW Standard Deviation 42.8 fL (35.1-46.3); White Blood Cell Count 11.73 K/mm3 (4.00-11.30)
[2020-07-15 14:16] LABS: Alanine Aminotransfer (ALT/SGP 31 U/L (12-78); Albumin, Blood 3.4 g/dL (3.4-5.0); Alk Phos 83 U/L (50-136); Anion Gap 4 mmol/L (6-16); Aspartate Aminotrans (AST/SGOT 25 U/L (12-37); Bilirubin, Total 0.3 mg/dL (0.1-1.0); Blood Urea Nitrogen 10 mg/dL (8-24); Bun/Creatinine Ratio 12.8 (12.0-20.0); CO2, Blood 29 mmol/L (21-32); Calcium, Blood 8.7 mg/dL (8.5-10.1); Chloride, Blood 101 mmol/L (98-108); Creatinine, Blood 0.78 mg/dL (0.60-1.20); Globulin, Blood 3.5 g/dL (2.2-4.0); Glomerular Filtration Rate >60 (60-); Glucose, Blood 185 mg/dL (70-99); Potassium, Blood 3.7 mmol/L (3.5-5.5); Sodium, Blood 134 mmol/L (136-145); Total Protein, Blood 6.9 g/dL (6.4-8.2); Troponin I <0.015 ng/mL (0.000-0.040)
[2020-07-15] MEDS ORDERED: METF500 PO (15:58)
[2020-07-15] MEDS ORDERED: GLIP10ER PO (15:59)
[2020-07-15] MEDS ORDERED: KLONOPIN0.5 M2 PO (15:59)
[2020-07-15] MEDS ORDERED: OMEP20ER PO (16:01)
--- NOTE | 2020-07-15 18:46 | NUR ---
SHIFT SUMMARY: ASSUMED CARE OF PATIENT AT 1714 UPON HIS ARRIVAL FROM ED. A&O X 4, [place], AMBULATES INDEPENDENTLY. DENIES PAIN AT THIS TIME. AWAITING TELEMETRY BOX. HAD DINNER TRAY. DENIES CHEST DISCOMFORT, SOB.
[2020-07-15 21:49] LABS: CPK Creatine Kinase 144 U/L (39-308); Creatine Kinase MB 1.8 ng/mL (0.0-3.6); Creatine Kinase MB Index 1.2 (0.0-4.0); Troponin I <0.015 ng/mL (0.000-0.040)
[2020-07-16 05:51] LABS: Hematocrit 47.9 % (37.0-53.0); Hemoglobin 15.9 g/dL (13.5-17.5); Mean Corpuscular HGB 28.1 pg (26.0-34.0); Mean Corpuscular HGB Conc 33.2 g/dL (31.5-36.5); Mean Corpuscular Volume 85 fL (80-100); Mean Platelet Volume 10.7 fL (9.1-12.4); Platelet Count 298 K/mm3 (150-400); RDW Coefficient Variation 13.7 % (11.7-14.2); RDW Standard Deviation 42.5 fL (35.1-46.3); Red Blood Cell Count 5.66 M/mm3 (4.30-5.90); White Blood Cell Count 10.53 K/mm3 (4.00-11.30)
[2020-07-16 06:04] LABS: Anion Gap 4 mmol/L (6-16); Blood Urea Nitrogen 10 mg/dL (8-24); Bun/Creatinine Ratio 13.9 (12.0-20.0); CHOL/HDL RATIO 4.8; CO2, Blood 29 mmol/L (21-32); CPK Creatine Kinase 120 U/L (39-308); Calcium, Blood 8.8 mg/dL (8.5-10.1); Chloride, Blood 106 mmol/L (98-108); Cholesterol 116 mg/dL (50-200); Creatine Kinase MB 1.6 ng/mL (0.0-3.6); Creatine Kinase MB Index 1.3 (0.0-4.0); Creatinine, Blood 0.72 mg/dL (0.60-1.20); Glomerular Filtration Rate >60 (60-); Glucose, Blood 168 mg/dL (70-99); HDL Cholesterol 24 mg/dL (>39); LDL/HDL RATIO 2.2; Low Density Lipoprotein Chol 54 mg/dL (0-110); Potassium, Blood 3.8 mmol/L (3.5-5.5); Sodium, Blood 139 mmol/L (136-145); Triglycerides 191 mg/dL (30-160); Troponin I <0.015 ng/mL (0.000-0.040); Very Low Density Lipoprot Chol 38 mg/dL (6-32)
--- NOTE | 2020-07-16 17:46 | NUR ---
PATIENT IS ALERT AND ORIENTED AND COOPERATIVE WITH CARE. PATIENT IS A CURRENT SMOKER AND HAS TRIED TO LEAVE MEDICAL FLOOR TO GO OUTSIDE TO SMOKE. THIS RN HAS EXPLAINED TO THE PATIENT THE HE CANNOT LEAVE THE MEDICAL FLOOR. PATIENT COMPLETED THE FIRST PART OF HIS STRESS TEST TODAY. HE IS INDEPENDENT IN THE ROOM. NO C/O CHEST PAIN TODAY. WILL CONTINUE TO MONITOR
--- NOTE | 2020-07-17 04:35 | NUR ---
SHIFT SUMMARY ASSUMED CARE OF PT AT 1900. PT IS A/OX4. HEART SOUNDS REGULAR, LUNG SOUNDS DIMINISHED ON THE L SIDE. PT WORE CPAP DURING THE NIGHT. PT IS INDEPENDENT IN THE ROOM. PT HAS BEEN NPO SINCE MIDNIGHT. DENIES CP. CALL LIGHT IN REACH, BED IN LOWEST POSTITION
[2020-07-17 05:12] LABS: Albumin, Blood 3.1 g/dL (3.4-5.0); Anion Gap 2 mmol/L (6-16); Blood Urea Nitrogen 11 mg/dL (8-24); CO2, Blood 31 mmol/L (21-32); Calcium, Blood 8.5 mg/dL (8.5-10.1); Chloride, Blood 105 mmol/L (98-108); Creatinine, Blood 0.78 mg/dL (0.60-1.20); Glomerular Filtration Rate >60 (60-); Glucose, Blood 145 mg/dL (70-99); Potassium, Blood 3.8 mmol/L (3.5-5.5); Sodium, Blood 138 mmol/L (136-145)
[2020-07-17] MEDS ORDERED: NITR.4SL SL (12:45)
[2020-07-17] MEDS ORDERED: ATOR20 PO (12:48)
--- NOTE | 2020-07-17 13:22 | NUR ---
PATIENT D/C'D VIA [facility] RX MEDICATIONS SENT TO [facility]. DC INSTRUCTIONS AND EDUCATION DISCUSSED WITH PATIENT AND COPY PROVIDED. PATIENT DENIES ANY FURTHER QUESTIONS OR CONCERNS.
== END 2020-07-17 13:30 | disposition home or self-care (01) ==
LOC: ER 13:24 → MEDS 13:25
PROVIDERS: Emergency Medicine; ADMIT Internal Medicine
DX: R07.9 Chest pain, unspecified (principal); I25.10 Atherosclerotic heart disease of native coronary artery without angina pectoris; I48.20 Chronic atrial fibrillation, unspecified; E11.9 Type 2 diabetes mellitus without complications; E78.1 Pure hyperglyceridemia; G47.33 Obstructive sleep apnea (adult) (pediatric); J44.9 Chronic obstructive pulmonary disease, unspecified; E66.01 Morbid (severe) obesity due to excess calories; K21.9 Gastro-esophageal reflux disease without esophagitis; F41.8 Other specified anxiety disorders; M10.9 Gout, unspecified; L40.50 Arthropathic psoriasis, unspecified; Z79.01 Long term (current) use of anticoagulants; Z68.41 Body mass index [BMI] 40.0-44.9, adult
CPT/HCPCS: 36415; 71045; 78452; 80048; 80053; 80061; 80069; 82550; 82553; 82947; 83036; 84484; 85025; 85027; 93005; 93010; 93017; 94660; 94762; 99285-25; A9270; A9500; G0378; J2785

== ENCOUNTER 2020-07-30 10:22 | Emergency (ER) | payer OTHER ==
[~2020-07-30] VITALS: Ht 177.8 cm; Wt 122.5 kg
[~2020-07-30 10:22] MED LIST changes: +ATOR20 PO; +GLIP10ER PO; +KLONOPIN0.5 M2 PO; +METF500 PO
[2020-07-30 10:46] LABS: BASOPHILS PERCENT AUTO 1 % (0-2); EOSINOPHILS ABSOLUTE AUTO 0.38 K/mm3 (0.00-0.68); EOSINOPHILS PERCENT AUTO 3 % (0-6); Hematocrit 46.5 % (37.0-53.0); Hemoglobin 15.5 g/dL (13.5-17.5); IMMATURE GRAN ABSOLUTE AUTO 0.05 K/mm3 (0.00-0.10); IMMATURE GRAN PERCENT AUTO 0 % (0-1); LYMPHOCYTES ABSOLUTE AUTO 1.74 K/mm3 (0.84-5.20); LYMPHOCYTES PERCENT AUTO 15 % (21-46); MONOCYTES ABSOLUTE AUTO 0.85 K/mm3 (0.16-1.47); MONOCYTES PERCENT AUTO 7 % (4-13); Mean Corpuscular HGB 27.8 pg (26.0-34.0); Mean Corpuscular HGB Conc 33.3 g/dL (31.5-36.5); Mean Corpuscular Volume 84 fL (80-100); Mean Platelet Volume 10.4 fL (9.1-12.4); NEUTROPHILS ABSOLUTE AUTO 8.76 K/mm3 (1.96-9.15); NEUTROPHILS PERCENT AUTO 74 % (41-73); Platelet Count 312 K/mm3 (150-400); RDW Coefficient Variation 14.3 % (11.7-14.2); RDW Standard Deviation 43.4 fL (35.1-46.3); Red Blood Cell Count 5.57 M/mm3 (4.30-5.90); White Blood Cell Count 11.88 K/mm3 (4.00-11.30)
[2020-07-30 11:10] LABS: Alanine Aminotransfer (ALT/SGP 30 U/L (12-78); Albumin, Blood 3.6 g/dL (3.4-5.0); Alk Phos 82 U/L (50-136); Anion Gap 6 mmol/L (6-16); Aspartate Aminotrans (AST/SGOT 20 U/L (12-37); Bilirubin, Total 0.4 mg/dL (0.1-1.0); Blood Urea Nitrogen 15 mg/dL (8-24); Bun/Creatinine Ratio 21.8 (12.0-20.0); CO2, Blood 25 mmol/L (21-32); Calcium, Blood 8.7 mg/dL (8.5-10.1); Chloride, Blood 107 mmol/L (98-108); Creatinine, Blood 0.69 mg/dL (0.60-1.20); Globulin, Blood 3.7 g/dL (2.2-4.0); Glomerular Filtration Rate >60 (60-); Glucose, Blood 120 mg/dL (70-99); Potassium, Blood 3.8 mmol/L (3.5-5.5); Sodium, Blood 138 mmol/L (136-145); Total Protein, Blood 7.3 g/dL (6.4-8.2); Troponin I <0.015 ng/mL (0.000-0.040)
[2020-07-30] MEDS ORDERED: ALBU90OI INH (12:10)
[2020-07-30] MEDS ORDERED: DOXY100 PO (12:10)
[2020-07-30] MEDS ORDERED: Prednisone20 MG PO (12:10)
== END 2020-07-30 12:40 | disposition home or self-care (01) ==
LOC: ER 10:22
PROVIDERS: Emergency Medicine
DX: J44.0 Chronic obstructive pulmonary disease with (acute) lower respiratory infection (principal); J18.9 Pneumonia, unspecified organism; I48.91 Unspecified atrial fibrillation; E11.9 Type 2 diabetes mellitus without complications; F17.210 Nicotine dependence, cigarettes, uncomplicated; Z79.84 Long term (current) use of oral hypoglycemic drugs; Z79.01 Long term (current) use of anticoagulants; Z79.899 Other long term (current) drug therapy; Z88.6 Allergy status to analgesic agent
CPT/HCPCS: 36415; 71045; 80053; 82947; 84484; 85025; 93005; 93010; 94640; 96374; 96375; 99284-25; A9270; J2405; J2930

== ENCOUNTER 2020-08-30 11:13 | Emergency (ER) | payer OTHER ==
[~2020-08-30] VITALS: Ht 177.8 cm; Wt 136.1 kg
[~2020-08-30 11:13] MED LIST changes: +ALBU90OI INH; +DOXY100 PO
[2020-08-30 11:43] LABS: BASOPHILS PERCENT AUTO 1 % (0-2); EOSINOPHILS PERCENT AUTO 2 % (0-6); Hematocrit 41.8 % (37.0-53.0); Hemoglobin 14.3 g/dL (13.5-17.5); IMMATURE GRAN ABSOLUTE AUTO 0.06 K/mm3 (0.00-0.10); IMMATURE GRAN PERCENT AUTO 1 % (0-1); LYMPHOCYTES ABSOLUTE AUTO 2.01 K/mm3 (0.84-5.20); LYMPHOCYTES PERCENT AUTO 16 % (21-46); MONOCYTES ABSOLUTE AUTO 0.81 K/mm3 (0.16-1.47); MONOCYTES PERCENT AUTO 7 % (4-13); Mean Corpuscular HGB 28.5 pg (26.0-34.0); Mean Corpuscular HGB Conc 34.2 g/dL (31.5-36.5); Mean Corpuscular Volume 83 fL (80-100); Mean Platelet Volume 10.9 fL (9.1-12.4); NEUTROPHILS ABSOLUTE AUTO 9.16 K/mm3 (1.96-9.15); NEUTROPHILS PERCENT AUTO 74 % (41-73); Platelet Count 291 K/mm3 (150-400); RDW Coefficient Variation 14.8 % (11.7-14.2); RDW Standard Deviation 44.8 fL (35.1-46.3); Red Blood Cell Count 5.01 M/mm3 (4.30-5.90); White Blood Cell Count 12.44 K/mm3 (4.00-11.30)
[2020-08-30 11:58] LABS: Alanine Aminotransfer (ALT/SGP 43 U/L (12-78); Albumin, Blood 3.5 g/dL (3.4-5.0); Albumin/Globulin Ratio 1.2 (0.8-1.8); Alk Phos 69 U/L (50-136); Anion Gap 6 mmol/L (6-16); Aspartate Aminotrans (AST/SGOT 26 U/L (12-37); Bilirubin, Total 0.5 mg/dL (0.1-1.0); Blood Urea Nitrogen 14 mg/dL (8-24); Bun/Creatinine Ratio 16.4 (12.0-20.0); CO2, Blood 26 mmol/L (21-32); Calcium, Blood 8.5 mg/dL (8.5-10.1); Chloride, Blood 106 mmol/L (98-108); Creatinine, Blood 0.86 mg/dL (0.60-1.20); Glomerular Filtration Rate >60 (60-); Glucose, Blood 87 mg/dL (70-99); Potassium, Blood 4.2 mmol/L (3.5-5.5); Sodium, Blood 138 mmol/L (136-145); Total Protein, Blood 6.5 g/dL (6.4-8.2); Troponin I <0.015 ng/mL (0.000-0.040)
[2020-08-30] MEDS ORDERED: NITR.4SL SL (14:30)
== END 2020-08-30 14:50 | disposition home or self-care (01) ==
LOC: ER 11:13
PROVIDERS: Emergency Medicine
DX: I20.8 Other forms of angina pectoris (principal)
CPT/HCPCS: 71045; 80053; 84484; 85025; 93005; 93010; 99285-25

== ENCOUNTER 2020-10-05 13:18 | Emergency (ER) | payer OTHER ==
[~2020-10-05] VITALS: Ht 177.8 cm; Wt 117.9 kg
[2020-10-05 13:43] LABS: BASOPHILS ABSOLUTE AUTO 0.14 K/mm3 (0.00-0.23); BASOPHILS PERCENT AUTO 1 % (0-2); EOSINOPHILS ABSOLUTE AUTO 0.28 K/mm3 (0.00-0.68); EOSINOPHILS PERCENT AUTO 2 % (0-6); Hemoglobin 15.3 g/dL (13.5-17.5); IMMATURE GRAN ABSOLUTE AUTO 0.08 K/mm3 (0.00-0.10); IMMATURE GRAN PERCENT AUTO 1 % (0-1); LYMPHOCYTES ABSOLUTE AUTO 2.39 K/mm3 (0.84-5.20); LYMPHOCYTES PERCENT AUTO 19 % (21-46); MONOCYTES ABSOLUTE AUTO 0.94 K/mm3 (0.16-1.47); MONOCYTES PERCENT AUTO 8 % (4-13); Mean Corpuscular HGB 29.1 pg (26.0-34.0); Mean Corpuscular Volume 86 fL (80-100); Mean Platelet Volume 10.5 fL (9.1-12.4); NEUTROPHILS ABSOLUTE AUTO 8.57 K/mm3 (1.96-9.15); NEUTROPHILS PERCENT AUTO 69 % (41-73); Platelet Count 323 K/mm3 (150-400); RDW Coefficient Variation 14.5 % (11.7-14.2); RDW Standard Deviation 44.9 fL (35.1-46.3); Red Blood Cell Count 5.25 M/mm3 (4.30-5.90)
[2020-10-05 14:22] LABS: Alanine Aminotransfer (ALT/SGP 23 U/L (12-78); Albumin, Blood 3.6 g/dL (3.4-5.0); Albumin/Globulin Ratio 1.1 (0.8-1.8); Alk Phos 67 U/L (50-136); Anion Gap 5 mmol/L (6-16); Aspartate Aminotrans (AST/SGOT 20 U/L (12-37); Bilirubin, Total 0.5 mg/dL (0.1-1.0); Blood Urea Nitrogen 16 mg/dL (8-24); Bun/Creatinine Ratio 19.3 (12.0-20.0); CO2, Blood 26 mmol/L (21-32); Calcium, Blood 8.8 mg/dL (8.5-10.1); Chloride, Blood 105 mmol/L (98-108); Creatinine, Blood 0.83 mg/dL (0.60-1.20); Globulin, Blood 3.2 g/dL (2.2-4.0); Glomerular Filtration Rate >60 (60-); Glucose, Blood 131 mg/dL (70-99); Potassium, Blood 3.9 mmol/L (3.5-5.5); Sodium, Blood 136 mmol/L (136-145); Total Protein, Blood 6.8 g/dL (6.4-8.2); Troponin I <0.015 ng/mL (0.000-0.040)
== END 2020-10-05 16:17 | disposition home or self-care (01) ==
LOC: ER 13:18
PROVIDERS: Emergency Medicine
DX: R07.9 Chest pain, unspecified (principal); R00.2 Palpitations; I48.91 Unspecified atrial fibrillation; E11.9 Type 2 diabetes mellitus without complications; I10 Essential (primary) hypertension; I25.2 Old myocardial infarction; J44.9 Chronic obstructive pulmonary disease, unspecified; F17.210 Nicotine dependence, cigarettes, uncomplicated; Z88.6 Allergy status to analgesic agent; Z79.84 Long term (current) use of oral hypoglycemic drugs; Z79.899 Other long term (current) drug therapy; Z79.01 Long term (current) use of anticoagulants
CPT/HCPCS: 36415; 71045; 80053; 83880; 84484; 85025; 93005; 93010; 99285-25; A9270

== ENCOUNTER 2020-12-31 10:22 | Emergency (ER) | payer OTHER ==
[~2020-12-31] VITALS: Ht 177.8 cm; Wt 120.2 kg
[2020-12-31] MEDS ORDERED: LIDO700A20 TOP (11:19)
[2020-12-31] MEDS ORDERED: GABA300 PO (11:19)
[2020-12-31] MEDS ORDERED: PRED20 PO (11:19)
== END 2020-12-31 11:51 | disposition home or self-care (01) ==
LOC: ER 10:22
DX: M54.12 Radiculopathy, cervical region (principal); M54.50 Low back pain, unspecified; G89.29 Other chronic pain; Z88.8 Allergy status to other drugs, medicaments and biological substances; Z88.6 Allergy status to analgesic agent; Z79.899 Other long term (current) drug therapy; Z79.84 Long term (current) use of oral hypoglycemic drugs; I48.91 Unspecified atrial fibrillation; G47.30 Sleep apnea, unspecified; E11.9 Type 2 diabetes mellitus without complications; G43.909 Migraine, unspecified, not intractable, without status migrainosus; I10 Essential (primary) hypertension; I25.10 Atherosclerotic heart disease of native coronary artery without angina pectoris; I25.2 Old myocardial infarction; J44.9 Chronic obstructive pulmonary disease, unspecified; M10.9 Gout, unspecified; F17.210 Nicotine dependence, cigarettes, uncomplicated
CPT/HCPCS: 99283; A9270; J7512

== ENCOUNTER 2021-02-12 12:51 | Emergency (ER) | payer OTHER ==
[~2021-02-12] VITALS: Ht 177.8 cm; Wt 74.8 kg
[~2021-02-12 12:51] MED LIST changes: +LIDO700A20 TOP; +PRED20 PO
[2021-02-12 13:28] LABS: BASOPHILS ABSOLUTE AUTO 0.14 K/mm3 (0.00-0.23); BASOPHILS PERCENT AUTO 1 % (0-2); EOSINOPHILS ABSOLUTE AUTO 0.24 K/mm3 (0.00-0.68); EOSINOPHILS PERCENT AUTO 2 % (0-6); Hematocrit 47.3 % (37.0-53.0); Hemoglobin 16.1 g/dL (13.5-17.5); IMMATURE GRAN ABSOLUTE AUTO 0.06 K/mm3 (0.00-0.10); IMMATURE GRAN PERCENT AUTO 1 % (0-1); LYMPHOCYTES ABSOLUTE AUTO 1.85 K/mm3 (0.84-5.20); LYMPHOCYTES PERCENT AUTO 14 % (21-46); MONOCYTES ABSOLUTE AUTO 0.89 K/mm3 (0.16-1.47); MONOCYTES PERCENT AUTO 7 % (4-13); Mean Corpuscular HGB 28.5 pg (26.0-34.0); Mean Corpuscular Volume 84 fL (80-100); Mean Platelet Volume 10.6 fL (9.1-12.4); NEUTROPHILS ABSOLUTE AUTO 9.92 K/mm3 (1.96-9.15); NEUTROPHILS PERCENT AUTO 76 % (41-73); Platelet Count 334 K/mm3 (150-400); RDW Coefficient Variation 14.2 % (11.7-14.2); RDW Standard Deviation 42.9 fL (35.1-46.3); Red Blood Cell Count 5.64 M/mm3 (4.30-5.90)
[2021-02-12] MEDS ORDERED: GLIP10ER PO (14:11)
[2021-02-12] MEDS ORDERED: Ventolin/Prove6.7 GM INH (14:11)
[2021-02-12] MEDS ORDERED: TRAZ150T57 PO (14:11)
[2021-02-12] MEDS ORDERED: ATORVASTATIN CA20 MG PO (14:11)
[2021-02-12] MEDS ORDERED: LISI5 PO (14:12)
[2021-02-12] MEDS ORDERED: METFORMIN HCL500 M2 PO (14:12)
[2021-02-12] MEDS ORDERED: TRULICITY0.75 MG/01 SC (14:12)
[2021-02-12] MEDS ORDERED: DULOXETINE HCL60 M1 PO (14:13)
[2021-02-12] MEDS ORDERED: CATAPRES0.1 MG PO (14:13)
[2021-02-12] MEDS ORDERED: KLONOPIN PO (14:13)
[2021-02-12] MEDS ORDERED: METOPROLOL TAR PO (14:14)
[2021-02-12] MEDS ORDERED: HYDCHL25 PO (14:14)
[2021-02-12] MEDS ORDERED: PANTOPRAZOLE SO40 M2 PO (14:14)
[2021-02-12] MEDS ORDERED: TAMSULOSIN HCL0.4 M1 PO (14:14)
[2021-02-12] MEDS ORDERED: XARELTO20 M1 PO (14:15)
[2021-02-12 14:21] LABS: Alanine Aminotransfer (ALT/SGP 25 U/L (12-78); Albumin, Blood 3.8 g/dL (3.4-5.0); Albumin/Globulin Ratio 1.2 (0.8-1.8); Alk Phos 77 U/L (50-136); Anion Gap 5 mmol/L (6-16); Aspartate Aminotrans (AST/SGOT 18 U/L (12-37); Bilirubin, Total 0.7 mg/dL (0.1-1.0); Blood Urea Nitrogen 15 mg/dL (8-24); Bun/Creatinine Ratio 19.4 (12.0-20.0); CO2, Blood 29 mmol/L (21-32); Calcium, Blood 9.5 mg/dL (8.5-10.1); Chloride, Blood 107 mmol/L (98-108); Creatinine, Blood 0.77 mg/dL (0.60-1.20); Globulin, Blood 3.3 g/dL (2.2-4.0); Glomerular Filtration Rate >60 (60-); Glucose, Blood 116 mg/dL (70-99); Potassium, Blood 4.2 mmol/L (3.5-5.5); Sodium, Blood 141 mmol/L (136-145); Total Protein, Blood 7.1 g/dL (6.4-8.2); Troponin I <0.015 ng/mL (0.000-0.040)
== END 2021-02-12 15:20 | disposition home or self-care (01) ==
LOC: ER 12:51
PROVIDERS: Emergency Medicine
DX: R07.89 Other chest pain (principal); R06.00 Dyspnea, unspecified; I48.91 Unspecified atrial fibrillation; E11.9 Type 2 diabetes mellitus without complications; G47.30 Sleep apnea, unspecified; I10 Essential (primary) hypertension; I25.10 Atherosclerotic heart disease of native coronary artery without angina pectoris; Z20.822 Contact with and (suspected) exposure to COVID-19; I25.2 Old myocardial infarction; J44.9 Chronic obstructive pulmonary disease, unspecified; M10.9 Gout, unspecified; Z88.6 Allergy status to analgesic agent; Z88.8 Allergy status to other drugs, medicaments and biological substances; Z79.899 Other long term (current) drug therapy; Z79.84 Long term (current) use of oral hypoglycemic drugs; F17.210 Nicotine dependence, cigarettes, uncomplicated
CPT/HCPCS: 36415; 71046; 80053; 83690; 83880; 84484; 85025; 93005; 93010; 99285-25

== ENCOUNTER 2022-10-24 09:39 | Emergency (ER) | payer OTHER ==
[~2022-10-24] VITALS: Ht 172.7 cm; Wt 108.9 kg
[~2022-10-24 09:39] MED LIST changes: +ATORVASTATIN CA20 MG PO; +CATAPRES0.1 MG PO; +DULOXETINE HCL60 M1 PO; +KLONOPIN PO; +METFORMIN HCL500 M2 PO; +METOPROLOL TAR PO; +PANTOPRAZOLE SO40 M2 PO; +TAMSULOSIN HCL0.4 M1 PO; +TRAZ150T57 PO; +TRULICITY0.75 MG/01 SC; +Ventolin/Prove6.7 GM INH; +XARELTO20 M1 PO
[2022-10-24 10:00] VITALS: BP 155/92
[2022-10-24] MEDS ORDERED: METF500 PO (10:21)
[2022-10-24] MEDS ORDERED: Cymbalta60 MG PO (10:21)
[2022-10-24] MEDS ORDERED: ALLO100 PO (10:21)
[2022-10-24] MEDS ORDERED: Neurontin 300300 MG PO (10:21)
[2022-10-24] MEDS ORDERED: ADALAT CC60 M1 PO (10:21)
[2022-10-24] MEDS ORDERED: XARELTO20 MG PO (10:21)
[2022-10-24] MEDS ORDERED: Hydrochloroth12.5 MG PO (10:21)
[2022-10-24] MEDS ORDERED: Lopressor 50 mg50 MG PO (10:21)
[2022-10-24] MEDS ORDERED: Klonopin0.5 MG PO (10:21)
[2022-10-24] MEDS ORDERED: TRULICITY0.75 MG/01 SC (10:21)
[2022-10-24] MEDS ORDERED: GLIP10ER PO (10:21)
[2022-10-24] MEDS ORDERED: COSENTYX P150 MG/1 M SC (10:21)
[2022-10-24] MEDS ORDERED: Lamictal25 MG PO (10:21)
[2022-10-24] MEDS ORDERED: Trazodone HCl300 MG PO (10:21)
[2022-10-24] MEDS ORDERED: Prinivil5 MG PO (10:21)
[2022-10-24] MEDS ORDERED: ATOR40TA PO (10:21)
== END 2022-10-24 10:30 | disposition home or self-care (01) ==
LOC: ER 09:39
DX: Z76.0 Encounter for issue of repeat prescription (principal); I10 Essential (primary) hypertension; I25.10 Atherosclerotic heart disease of native coronary artery without angina pectoris; J44.9 Chronic obstructive pulmonary disease, unspecified; E11.9 Type 2 diabetes mellitus without complications; I48.91 Unspecified atrial fibrillation; F41.9 Anxiety disorder, unspecified; Z88.6 Allergy status to analgesic agent; Z79.899 Other long term (current) drug therapy; Z79.84 Long term (current) use of oral hypoglycemic drugs; Z79.01 Long term (current) use of anticoagulants
CPT/HCPCS: 99281; A9270

== ENCOUNTER 2023-03-14 15:36 | Emergency (ER) | payer OTHER ==
[~2023-03-14] VITALS: Ht 172.7 cm; Wt 111.1 kg
[~2023-03-14 15:36] MED LIST changes: +ADALAT CC60 M1 PO; +ALLO100 PO; +ATOR40TA PO; +Cymbalta60 MG PO; +Hydrochloroth12.5 MG PO; +Lamictal25 MG PO; +Lopressor 50 mg50 MG PO; +Neurontin 300300 MG PO; +Prinivil5 MG PO; +Trazodone HCl300 MG PO
[2023-03-14 15:47] VITALS: BP 136/102
[2023-03-14 16:06] LABS: BASOPHILS ABSOLUTE AUTO 0.14 K/mm3 (0.00-0.23); BASOPHILS PERCENT AUTO 1 % (0-2); EOSINOPHILS ABSOLUTE AUTO 0.44 K/mm3 (0.00-0.68); EOSINOPHILS PERCENT AUTO 4 % (0-6); Hematocrit 44.1 % (37.0-53.0); Hemoglobin 14.7 g/dL (13.5-17.5); IMMATURE GRAN ABSOLUTE AUTO 0.08 K/mm3 (0.00-0.10); IMMATURE GRAN PERCENT AUTO 1 % (0-1); LYMPHOCYTES ABSOLUTE AUTO 2.43 K/mm3 (0.84-5.20); LYMPHOCYTES PERCENT AUTO 21 % (21-46); MONOCYTES ABSOLUTE AUTO 0.81 K/mm3 (0.16-1.47); MONOCYTES PERCENT AUTO 7 % (4-13); Mean Corpuscular HGB 27.3 pg (26.0-34.0); Mean Corpuscular HGB Conc 33.3 g/dL (31.5-36.5); Mean Corpuscular Volume 82 fL (80-100); Mean Platelet Volume 10.2 fL (9.1-12.4); NEUTROPHILS ABSOLUTE AUTO 7.68 K/mm3 (1.96-9.15); NEUTROPHILS PERCENT AUTO 66 % (41-73); Platelet Count 385 K/mm3 (150-400); RDW Coefficient Variation 15.1 % (11.7-14.2); RDW Standard Deviation 44.8 fL (35.1-46.3); Red Blood Cell Count 5.39 M/mm3 (4.30-5.90); White Blood Cell Count 11.58 K/mm3 (4.00-11.30)
[2023-03-14 16:31] LABS: Albumin, Blood 3.8 g/dL (3.4-5.0); Albumin/Globulin Ratio 1.1 (0.8-1.8); Bilirubin, Total 0.3 mg/dL (0.1-1.0); Bun/Creatinine Ratio 16.9 (12.0-20.0); Calcium, Blood 9.1 mg/dL (8.5-10.1); Creatinine, Blood 0.83 mg/dL (0.60-1.20); Globulin, Blood 3.5 g/dL (2.2-4.0); Potassium, Blood 3.8 mmol/L (3.5-5.5); Total Protein, Blood 7.3 g/dL (6.4-8.2)
== END 2023-03-14 17:55 | disposition left against medical advice (07) ==
LOC: ER 15:36
PROVIDERS: Physician Assistant
DX: R07.89 Other chest pain (principal); Z53.29 Procedure and treatment not carried out because of patient's decision for other reasons
CPT/HCPCS: 71046; 80053; 83690; 84484; 85025; 93005; 93010; 99282-25

== ENCOUNTER 2023-05-19 08:11 | Emergency (ER) | payer MEDICARE, OTHER ==
[~2023-05-19] VITALS: Ht 177.8 cm; Wt 129.3 kg
[2023-05-19 08:30] LABS: Calcium, Ionized (POC) 1.14 mmol/L (1.10-1.46); Chloride (POC) 102 mmol/L (98-108); Creatinine (POC) 0.9 mg/dL (0.8-1.3); Glucose (ISTAT POC) 250 mg/dL (70-99); Hemoglobin (POC) 17.7 g/dL (13.5-17.5); Potassium (POC) 4.4 mmol/L (3.5-5.5); Sodium (POC) 142 mmol/L (135-148); Total CO2 (POC) 23 mmol/L (21-32)
[2023-05-19 08:36] LABS: BASOPHILS ABSOLUTE AUTO 0.17 K/mm3 (0.00-0.23); BASOPHILS PERCENT AUTO 1 % (0-2); EOSINOPHILS PERCENT AUTO 3 % (0-6); Hematocrit 51.1 % (37.0-53.0); Hemoglobin 16.4 g/dL (13.5-17.5); IMMATURE GRAN ABSOLUTE AUTO 0.15 K/mm3 (0.00-0.10); IMMATURE GRAN PERCENT AUTO 1 % (0-1); LYMPHOCYTES ABSOLUTE AUTO 3.17 K/mm3 (0.84-5.20); LYMPHOCYTES PERCENT AUTO 20 % (21-46); MONOCYTES ABSOLUTE AUTO 1.81 K/mm3 (0.16-1.47); MONOCYTES PERCENT AUTO 12 % (4-13); Mean Corpuscular HGB 27.7 pg (26.0-34.0); Mean Corpuscular HGB Conc 32.1 g/dL (31.5-36.5); Mean Corpuscular Volume 86 fL (80-100); Mean Platelet Volume 10.6 fL (9.1-12.4); NEUTROPHILS ABSOLUTE AUTO 9.88 K/mm3 (1.96-9.15); NEUTROPHILS PERCENT AUTO 63 % (41-73); Platelet Count 502 K/mm3 (150-400); RDW Coefficient Variation 17.6 % (11.7-14.2); Red Blood Cell Count 5.92 M/mm3 (4.30-5.90); White Blood Cell Count 15.68 K/mm3 (4.00-11.30)
[2023-05-19] MEDS ORDERED: propofoL 100 ML IV ONE (08:51)
[2023-05-19] MEDS ORDERED: levETIRAcetam 2,000 MG in NS 100 ML IV ONE (08:55)
[2023-05-19] MEDS ORDERED: propofoL 100 ML IV SCH (08:55)
[2023-05-19 09:10] LABS: Alanine Aminotransfer (ALT/SGP 28 U/L (12-78); Albumin, Blood 4.1 g/dL (3.4-5.0); Albumin/Globulin Ratio 1.1 (0.8-1.8); Alk Phos 104 U/L (50-136); Anion Gap 15 mmol/L (3-11); Aspartate Aminotrans (AST/SGOT 24 U/L (12-37); Bilirubin, Total 0.5 mg/dL (0.1-1.0); Blood Urea Nitrogen 14 mg/dL (8-24); Bun/Creatinine Ratio 16.6 (12.0-20.0); CO2, Blood 25 mmol/L (21-32); Calcium, Blood 9.3 mg/dL (8.5-10.1); Chloride, Blood 107 mmol/L (98-108); Creatinine, Blood 0.84 mg/dL (0.60-1.20); Ethanol (Alcohol), Blood, Med <3 mg/dL; Globulin, Blood 3.8 g/dL (2.2-4.0); Glomerular Filtration Rate 99 (60-); Glucose, Blood 257 mg/dL (70-99); Potassium, Blood 4.6 mmol/L (3.5-5.5); Sodium, Blood 142 mmol/L (136-145); Total Protein, Blood 7.9 g/dL (6.4-8.2)
[2023-05-19 09:36] LABS: U Amphetamine Screen Not Detected; U Barbituate Screen Not Detected; U Benzodiazapine Screen Not Detected; U Buprenorphine Screen Not Detected; U Cannabinoids Screen Not Detected; U Cocaine Screen Not Detected; U Methadone Screen Not Detected; U Methamphetamine Screen Not Detected; U Opiates Screen Not Detected; U Oxycodone Screen Not Detected; U Phencyclidine Screen Not Detected
[2023-05-19] MEDS ORDERED: NS 1,000 ML IV SCH (09:45)
[2023-05-19] MEDS ORDERED: LORazepam 2 MG/ML 1ML Injection IV ONE ×2 (09:45→22:22)
[2023-05-19] MEDS ORDERED: FentaNYL Citrate 50 MCG/ML 2 ML Injection IV ONE (10:55)
[2023-05-19 11:33] VITALS: BP 127/82
[2023-05-19] MEDS ORDERED: FentaNYL Citrate 50 MCG/ML 2 ML Injection ONE (11:50)
[2023-05-19] MEDS ORDERED: Etomidate 2MG / ML 10ML Vial IV ONE (22:22)
[2023-05-19] MEDS ORDERED: SuccINYLCHOLINE Chloride 200 MG/10 ML 10MLSYR IV ONE (22:22)
== END 2023-05-19 11:55 | disposition short-term general hospital (02) ==
LOC: ER 08:11
PROVIDERS: Emergency Medicine
DX: E11.65 Type 2 diabetes mellitus with hyperglycemia (principal); Z88.6 Allergy status to analgesic agent; Z88.8 Allergy status to other drugs, medicaments and biological substances; Z79.899 Other long term (current) drug therapy; Z79.84 Long term (current) use of oral hypoglycemic drugs; I48.91 Unspecified atrial fibrillation; G47.30 Sleep apnea, unspecified; M06.9 Rheumatoid arthritis, unspecified; G43.909 Migraine, unspecified, not intractable, without status migrainosus; I10 Essential (primary) hypertension; I25.10 Atherosclerotic heart disease of native coronary artery without angina pectoris; I25.2 Old myocardial infarction; J44.9 Chronic obstructive pulmonary disease, unspecified; F17.210 Nicotine dependence, cigarettes, uncomplicated
CPT/HCPCS: 31500; 51702; 70450; 71045; 80047; 80053; 82550; 83880; 84484; 85014; 85025; 94002; 99285-25; J0330; J1953; J2060; J2704; J3010; J7030

== ENCOUNTER 2023-06-12 13:00 | Emergency (ER) | payer MEDICARE, OTHER ==
[~2023-06-12] VITALS: Ht 177.8 cm; Wt 113.4 kg
[2023-06-12 15:29] VITALS: BP 171/106
== END 2023-06-12 16:33 | disposition home or self-care (01) ==
LOC: ER 13:00
DX: M25.552 Pain in left hip (principal); Z96.642 Presence of left artificial hip joint; I48.91 Unspecified atrial fibrillation; F17.210 Nicotine dependence, cigarettes, uncomplicated; F41.9 Anxiety disorder, unspecified; F32.A Depression, unspecified; E11.9 Type 2 diabetes mellitus without complications; G47.30 Sleep apnea, unspecified; M06.9 Rheumatoid arthritis, unspecified; I10 Essential (primary) hypertension; I25.10 Atherosclerotic heart disease of native coronary artery without angina pectoris; I25.2 Old myocardial infarction; M10.9 Gout, unspecified; J44.9 Chronic obstructive pulmonary disease, unspecified; W18.30XA Fall on same level, unspecified, initial encounter; Z79.85 Long-term (current) use of injectable non-insulin antidiabetic drugs; Z88.8 Allergy status to other drugs, medicaments and biological substances; Z79.899 Other long term (current) drug therapy; Z79.84 Long term (current) use of oral hypoglycemic drugs; Z79.01 Long term (current) use of anticoagulants
CPT/HCPCS: 73502; 99283-25

== ENCOUNTER 2023-10-10 08:39 | Emergency (ER) | payer OTHER, MEDICARE ==
[~2023-10-10] VITALS: Ht 172.7 cm; Wt 113.4 kg
[~2023-10-10 08:39] MED LIST changes: +BUPROPION XL150 M1; +BUPROPION XL450 M1 PO; +LAMOTRIGINE100 M1 PO; +OLMESARTAN MEDO40 MG PO; +TRULICITY1.5 MG/0.1 SC
[2023-10-10 10:52] VITALS: BP 140/66
== END 2023-10-10 11:05 | disposition home or self-care (01) ==
LOC: ER 08:39
DX: S20.211A Contusion of right front wall of thorax, initial encounter (principal); I48.91 Unspecified atrial fibrillation; E11.9 Type 2 diabetes mellitus without complications; I10 Essential (primary) hypertension; G47.30 Sleep apnea, unspecified; I25.2 Old myocardial infarction; J44.9 Chronic obstructive pulmonary disease, unspecified; W01.0XXA Fall on same level from slipping, tripping and stumbling without subsequent striking against object, initial encounter; F17.210 Nicotine dependence, cigarettes, uncomplicated; Z79.899 Other long term (current) drug therapy; Z79.84 Long term (current) use of oral hypoglycemic drugs; Z88.6 Allergy status to analgesic agent
CPT/HCPCS: 70450; 71046; 99285-25

== ENCOUNTER 2023-10-26 18:23 | Emergency (ER) | payer MEDICARE, OTHER ==
[~2023-10-26] VITALS: Ht 177.8 cm; Wt 117.9 kg
[2023-10-26 18:40] VITALS: BP 161/88
[2023-10-26 18:59] LABS: BASOPHILS PERCENT AUTO 1 % (0-2); EOSINOPHILS ABSOLUTE AUTO 0.33 K/mm3 (0.00-0.68); EOSINOPHILS PERCENT AUTO 3 % (0-6); Hematocrit 43.2 % (37.0-53.0); Hemoglobin 14.8 g/dL (13.5-17.5); IMMATURE GRAN ABSOLUTE AUTO 0.12 K/mm3 (0.00-0.10); IMMATURE GRAN PERCENT AUTO 1 % (0-1); LYMPHOCYTES ABSOLUTE AUTO 1.76 K/mm3 (0.84-5.20); LYMPHOCYTES PERCENT AUTO 16 % (21-46); MONOCYTES ABSOLUTE AUTO 0.87 K/mm3 (0.16-1.47); MONOCYTES PERCENT AUTO 8 % (4-13); Mean Corpuscular HGB 27.7 pg (26.0-34.0); Mean Corpuscular HGB Conc 34.3 g/dL (31.5-36.5); Mean Corpuscular Volume 81 fL (80-100); Mean Platelet Volume 10.4 fL (9.1-12.4); NEUTROPHILS ABSOLUTE AUTO 7.82 K/mm3 (1.96-9.15); NEUTROPHILS PERCENT AUTO 71 % (41-73); Platelet Count 328 K/mm3 (150-400); RDW Coefficient Variation 17.5 % (11.7-14.2); RDW Standard Deviation 50.4 fL (35.1-46.3); Red Blood Cell Count 5.35 M/mm3 (4.30-5.90)
[2023-10-26 19:19] LABS: Albumin, Blood 3.4 g/dL (3.4-5.0); Albumin/Globulin Ratio 0.9 (0.8-1.8); Bilirubin, Total 0.4 mg/dL (0.1-1.0); Bun/Creatinine Ratio 14.7 (12.0-20.0); Calcium, Blood 8.9 mg/dL (8.5-10.1); Creatinine, Blood 0.82 mg/dL (0.60-1.20); Globulin, Blood 3.6 g/dL (2.2-4.0); Potassium, Blood 3.7 mmol/L (3.5-5.5)
[2023-10-26] MEDS ORDERED: Vibramycin100 MG PO (20:03)
[2023-10-26] MEDS ORDERED: Doxycycline Hyclate 100 MG TAB PO ONE (20:05)
== END 2023-10-26 20:07 | disposition home or self-care (01) ==
LOC: ER 18:23
PROVIDERS: Emergency Medicine
DX: R07.2 Precordial pain (principal); R50.9 Fever, unspecified; I48.91 Unspecified atrial fibrillation; G47.30 Sleep apnea, unspecified; E11.9 Type 2 diabetes mellitus without complications; I10 Essential (primary) hypertension; G43.909 Migraine, unspecified, not intractable, without status migrainosus; I25.2 Old myocardial infarction; J44.9 Chronic obstructive pulmonary disease, unspecified; F17.210 Nicotine dependence, cigarettes, uncomplicated; Z79.84 Long term (current) use of oral hypoglycemic drugs; Z79.899 Other long term (current) drug therapy; Z88.6 Allergy status to analgesic agent
CPT/HCPCS: 71046; 80053; 84484; 85025; 93005; 93010; 99285-25; A9270

== ENCOUNTER 2023-11-08 19:34 | Emergency (ER) | payer MEDICARE, OTHER ==
[~2023-11-08] VITALS: Ht 170.2 cm; Wt 90.7 kg
[~2023-11-08 19:34] MED LIST changes: +Vibramycin100 MG PO
[2023-11-08 19:41] VITALS: BP 196/94
[2023-11-08] MEDS ORDERED: Ondansetron 4 MG SoluTab SL ONE (20:10)
[2023-11-08] MEDS ORDERED: RX Prepack 2 Tabs Ondansetron ODT 4MG UD ONE (21:05)
== END 2023-11-08 21:09 | disposition home or self-care (01) ==
LOC: ER 19:34
DX: R11.2 Nausea with vomiting, unspecified (principal); I48.91 Unspecified atrial fibrillation; E11.9 Type 2 diabetes mellitus without complications; G43.909 Migraine, unspecified, not intractable, without status migrainosus; I10 Essential (primary) hypertension; I25.2 Old myocardial infarction; J44.9 Chronic obstructive pulmonary disease, unspecified; F17.210 Nicotine dependence, cigarettes, uncomplicated; Z79.899 Other long term (current) drug therapy; Z88.6 Allergy status to analgesic agent; Z79.84 Long term (current) use of oral hypoglycemic drugs
CPT/HCPCS: 99283; A9270

== ENCOUNTER 2023-12-18 11:21 | Emergency (ER) | payer MEDICARE, OTHER ==
[~2023-12-18] VITALS: Ht 177.8 cm; Wt 111.1 kg
[2023-12-18 11:59] LABS: BASOPHILS ABSOLUTE AUTO 0.13 K/mm3 (0.00-0.23); BASOPHILS PERCENT AUTO 1 % (0-2); EOSINOPHILS ABSOLUTE AUTO 0.08 K/mm3 (0.00-0.68); EOSINOPHILS PERCENT AUTO 1 % (0-6); Hematocrit 50.1 % (37.0-53.0); Hemoglobin 16.7 g/dL (13.5-17.5); IMMATURE GRAN ABSOLUTE AUTO 0.16 K/mm3 (0.00-0.10); IMMATURE GRAN PERCENT AUTO 1 % (0-1); LYMPHOCYTES ABSOLUTE AUTO 1.19 K/mm3 (0.84-5.20); LYMPHOCYTES PERCENT AUTO 7 % (21-46); MONOCYTES ABSOLUTE AUTO 0.82 K/mm3 (0.16-1.47); MONOCYTES PERCENT AUTO 5 % (4-13); Mean Corpuscular HGB 28.6 pg (26.0-34.0); Mean Corpuscular HGB Conc 33.3 g/dL (31.5-36.5); Mean Corpuscular Volume 86 fL (80-100); Mean Platelet Volume 10.4 fL (9.1-12.4); NEUTROPHILS ABSOLUTE AUTO 14.04 K/mm3 (1.96-9.15); NEUTROPHILS PERCENT AUTO 86 % (41-73); Platelet Count 320 K/mm3 (150-400); RDW Coefficient Variation 15.4 % (11.7-14.2); RDW Standard Deviation 47.1 fL (35.1-46.3); Red Blood Cell Count 5.84 M/mm3 (4.30-5.90); White Blood Cell Count 16.42 K/mm3 (4.00-11.30)
[2023-12-18] MEDS ORDERED: ABILIFY5 MG PO (12:16)
[2023-12-18] MEDS ORDERED: BUPROPION XL150 M1 PO (12:16)
[2023-12-18] MEDS ORDERED: METO100 PO (12:26)
[2023-12-18] MEDS ORDERED: LAMOTRIGINE25 M4 PO (12:27)
[2023-12-18 12:28] LABS: Magnesium, Blood 2.1 mg/dL (1.6-2.4)
[2023-12-18] MEDS ORDERED: OMEPRAZOLE MAGN20 M1 PO (12:28)
[2023-12-18 12:29] LABS: Albumin, Blood 3.9 g/dL (3.4-5.0); Albumin/Globulin Ratio 1.1 (0.8-1.8); Bilirubin, Total 0.9 mg/dL (0.1-1.0); Bun/Creatinine Ratio 13.2 (12.0-20.0); Calcium, Blood 9.3 mg/dL (8.5-10.1); Creatinine, Blood 1.51 mg/dL (0.60-1.20); Globulin, Blood 3.6 g/dL (2.2-4.0); Potassium, Blood 4.9 mmol/L (3.5-5.5); Total Protein, Blood 7.5 g/dL (6.4-8.2)
[2023-12-18 13:24] VITALS: BP 153/132
[2023-12-18 13:38] LABS: Source, Urine Voided
[2023-12-18 13:40] LABS: Influenza A, PCR NEGATIVE (NEGATIVE); Influenza B, PCR NEGATIVE (NEGATIVE); Resp Syncytial Virus, PCR NEGATIVE (NEGATIVE); SARS-Cov-2 (COVID-19) PCR, MMC NEGATIVE (NEGATIVE)
[2023-12-18 14:02] LABS: Appearance, Urine Hazy (Clear); Blood, Urine 1+ (Neg); Color, Urine Amber (P-Yellow); Glucose Qualitative, Urine Neg (Neg); Ketones, Urine 1+ (Neg); Leukocyte Esterase, Urine 1+ (Neg); Nitrite, Urine Pos (Neg); Protein, Urine 3+ (Neg); Specific Gravity, Urine 1.025 (1.003-1.022); Urobilinogen, Urine 2+ (Normal)
[2023-12-18 14:42] LABS: Bilirubin, Urine 2+ (Neg)
[2023-12-18 14:43] LABS: Bacteria Many /hpf; Mucus Light (0-Heavy); Squamous Epithelial Cells Few /hpf (Few)
[2023-12-18] MEDS ORDERED: Cephalexin Monohydrate 500 MG Cap PO ONE (15:00)
[2023-12-18] MEDS ORDERED: CEPH500 PO (15:03)
== END 2023-12-18 15:37 | disposition home or self-care (01) ==
LOC: ER 11:21
PROVIDERS: Emergency Medicine; Physician Assistant
DX: N39.0 Urinary tract infection, site not specified (principal); E11.9 Type 2 diabetes mellitus without complications; I48.91 Unspecified atrial fibrillation; G47.30 Sleep apnea, unspecified; G43.909 Migraine, unspecified, not intractable, without status migrainosus; J44.9 Chronic obstructive pulmonary disease, unspecified; F17.210 Nicotine dependence, cigarettes, uncomplicated; Z79.899 Other long term (current) drug therapy; Z88.6 Allergy status to analgesic agent
CPT/HCPCS: 0241U; 80053; 81001; 83735; 85025; 87086; 93005; 93010; 99283-25; A9270

== ENCOUNTER 2024-01-26 04:06 | Inpatient (IN) | payer MEDICARE, OTHER ==
[~2024-01-26] VITALS: Ht 177.8 cm; Wt 117.9 kg
[~2024-01-26 04:06] MED LIST changes: +ABILIFY5 MG PO; +BUPROPION XL150 M1 PO; +LAMO100 PO; +OMEPRAZOLE MAGN20 M1 PO; +ZESTRIL40 M1 PO
[2024-01-26 05:06] LABS: BASOPHILS ABSOLUTE AUTO 0.11 K/mm3 (0.00-0.23); BASOPHILS PERCENT AUTO 1 % (0-2); EOSINOPHILS ABSOLUTE AUTO 0.19 K/mm3 (0.00-0.68); EOSINOPHILS PERCENT AUTO 1 % (0-6); Hematocrit 46.4 % (37.0-53.0); IMMATURE GRAN ABSOLUTE AUTO 0.18 K/mm3 (0.00-0.10); IMMATURE GRAN PERCENT AUTO 1 % (0-1); LYMPHOCYTES ABSOLUTE AUTO 1.74 K/mm3 (0.84-5.20); LYMPHOCYTES PERCENT AUTO 8 % (21-46); MONOCYTES ABSOLUTE AUTO 2.24 K/mm3 (0.16-1.47); MONOCYTES PERCENT AUTO 10 % (4-13); Mean Corpuscular HGB 29.1 pg (26.0-34.0); Mean Corpuscular HGB Conc 34.5 g/dL (31.5-36.5); Mean Corpuscular Volume 85 fL (80-100); Mean Platelet Volume 10.4 fL (9.1-12.4); NEUTROPHILS ABSOLUTE AUTO 18.51 K/mm3 (1.96-9.15); NEUTROPHILS PERCENT AUTO 81 % (41-73); Platelet Count 367 K/mm3 (150-400); RDW Standard Deviation 43.4 fL (35.1-46.3); Red Blood Cell Count 5.49 M/mm3 (4.30-5.90); White Blood Cell Count 22.97 K/mm3 (4.00-11.30)
[2024-01-26 05:27] LABS: Albumin, Blood 3.3 g/dL (3.4-5.0); Albumin/Globulin Ratio 0.8 (0.8-1.8); Bilirubin, Total 1.1 mg/dL (0.1-1.0); Bun/Creatinine Ratio 16.4 (12.0-20.0); Calcium, Blood 9.2 mg/dL (8.5-10.1); Creatinine, Blood 0.79 mg/dL (0.60-1.20); Globulin, Blood 4.2 g/dL (2.2-4.0); Potassium, Blood 4.3 mmol/L (3.5-5.5); Total Protein, Blood 7.5 g/dL (6.4-8.2)
[2024-01-26 05:28] LABS: Influenza A, PCR NEGATIVE (NEGATIVE); Influenza B, PCR NEGATIVE (NEGATIVE); Resp Syncytial Virus, PCR NEGATIVE (NEGATIVE); SARS-Cov-2 (COVID-19) PCR, MMC NEGATIVE (NEGATIVE)
[2024-01-26] MEDS ORDERED: CefTRIAXone Sodium 1,000 MG in NS 100 ML IV ONE (09:50)
[2024-01-26] MEDS ORDERED: NS 1,000 ML IV SCH (09:55)
[2024-01-26] MEDS ORDERED: Azithromycin 500 MG in NS 250 ML IV ONE (09:55)
[2024-01-26] MEDS ORDERED: Magnesium Hydroxide Conc 10 ML UDC PO PRN (10:40)
[2024-01-26] MEDS ORDERED: Ondansetron 4 MG TAB PO PRN (10:40)
[2024-01-26] MEDS ORDERED: FLU VACC TS2024-25(6MOS UP)/PF 45 MCG/0.5 ML SYRINGE IM SCH (10:40)
[2024-01-26] MEDS ORDERED: Ipratropium/Albuterol SulF 2.5-0.5MG/3 ML Amp INH PRN (10:45)
[2024-01-26] MEDS ORDERED: TraZODone HCl 50 MG Tab PO PRN (10:45)
[2024-01-26] MEDS ORDERED: Mometasone/Formoterol MDI 200/5 mcg 13 GM INH SCH (11:00)
[2024-01-26] MEDS ORDERED: PredniSONE 20 MG Tab PO SCH (12:00)
[2024-01-26] MEDS ORDERED: Ipratropium/Albuterol SulF 2.5-0.5MG/3 ML Amp INH SCH (13:30)
[2024-01-26] MEDS ORDERED: Insulin Human Lispro 100 Units/ML 3ML Syringe SC SCH (16:30)
[2024-01-26] MEDS ORDERED: MethylPREDNISolone Sod Succ 125 MG Vial IV SCH (20:00)
[2024-01-26 20:36] VITALS: BP 159/89
[2024-01-26] MEDS ORDERED: TraZODone HCl 100 MG Tab PO SCH (21:00)
[2024-01-26] MEDS ORDERED: GuaiFENesin 600 MG TabCR PO SCH (21:00)
[2024-01-26] MEDS ORDERED: Metoprolol Tartrate 50 MG Tab PO SCH (21:00)
[2024-01-26] MEDS ORDERED: LamoTRIgine 25 MG Tab PO SCH (21:00)
[2024-01-26] MEDS ORDERED: Famotidine 20 MG Tab PO SCH (21:00)
[2024-01-26] MEDS ORDERED: Lactobacil 2-S.Thermo-Bifido 1 1 Cap PO SCH (21:00)
[2024-01-26] MEDS ORDERED: METO100 PO (23:01)
[2024-01-27 02:50] VITALS: BP 150/91
--- NOTE | 2024-01-27 04:12 | NUR ---
SHIFT SUMMARY 63 YR M ADMITTED ON 01/26/24. FULL CODE. PT HAS BEEN RESTLESS THROUGHOUT THE NIGHT. HE TOSSES AND TURNS ALOT CAUSING HIS TELE PATCHES TO COME FREQUENTLY. HE ACCIDENTELY PULLED HIS IV OUT AND A NEW ONE WAS PLACED. HE WAS VERY GRUMPY AT BEGINNING OF SHIFT AND YELLED AND CUSSED AT THIS NURSE BUT QUICKLY APOLOGIZED AND HAS BEEN VERY PLEASANT AND COOPERATIVE THE REST OF THE SHIFT. NO ADVERSE EVENTS REPORTED FROM MEDICAL RECORD SPECIALIST EXCEPT FOR LEADS BEING OFF. PT HAD NO C/O PAIN OR DISCOMFORT THIS SHIFT. HE IS A&O X 4 AND USES A BEDSIDE URINAL INDEPENDANTLY. NO NEW CHANGES TO REPORT. BED IN LOW POSITION AND CALL LIGHT IN REACH.
[2024-01-27 06:55] LABS: BASOPHILS ABSOLUTE AUTO 0.05 K/mm3 (0.00-0.23); BASOPHILS PERCENT AUTO 0 % (0-2); EOSINOPHILS PERCENT AUTO 0 % (0-6); Hematocrit 47.4 % (37.0-53.0); Hemoglobin 16.3 g/dL (13.5-17.5); IMMATURE GRAN ABSOLUTE AUTO 0.14 K/mm3 (0.00-0.10); IMMATURE GRAN PERCENT AUTO 1 % (0-1); LYMPHOCYTES PERCENT AUTO 5 % (21-46); MONOCYTES ABSOLUTE AUTO 0.33 K/mm3 (0.16-1.47); MONOCYTES PERCENT AUTO 2 % (4-13); Mean Corpuscular HGB 28.5 pg (26.0-34.0); Mean Corpuscular HGB Conc 34.4 g/dL (31.5-36.5); Mean Corpuscular Volume 83 fL (80-100); Mean Platelet Volume 10.3 fL (9.1-12.4); NEUTROPHILS ABSOLUTE AUTO 13.82 K/mm3 (1.96-9.15); NEUTROPHILS PERCENT AUTO 92 % (41-73); Platelet Count 403 K/mm3 (150-400); RDW Coefficient Variation 13.7 % (11.7-14.2); RDW Standard Deviation 41.4 fL (35.1-46.3); Red Blood Cell Count 5.72 M/mm3 (4.30-5.90); White Blood Cell Count 15.04 K/mm3 (4.00-11.30)
[2024-01-27 07:20] LABS: Albumin, Blood 3.4 g/dL (3.4-5.0); Albumin/Globulin Ratio 0.7 (0.8-1.8); Bilirubin, Total 0.6 mg/dL (0.1-1.0); Bun/Creatinine Ratio 22.1 (12.0-20.0); Calcium, Blood 9.9 mg/dL (8.5-10.1); Creatinine, Blood 0.63 mg/dL (0.60-1.20); Globulin, Blood 4.8 g/dL (2.2-4.0); Magnesium, Blood 2.2 mg/dL (1.6-2.4); Potassium, Blood 4.6 mmol/L (3.5-5.5); Total Protein, Blood 8.2 g/dL (6.4-8.2)
[2024-01-27 07:43] VITALS: BP 165/93
[2024-01-27] MEDS ORDERED: Allopurinol 100 MG Tab PO SCH (09:00)
[2024-01-27] MEDS ORDERED: Rivaroxaban 10 MG Tab PO SCH (09:00)
[2024-01-27] MEDS ORDERED: CefTRIAXone Sodium 2,000 MG in NS 100 ML IV SCH (09:00)
[2024-01-27] MEDS ORDERED: ARIPiprazole 5 MG Tab PO SCH (09:00)
[2024-01-27] MEDS ORDERED: buPROPion HCL 150 MG TAB.SR.12H PO SCH (09:00)
[2024-01-27] MEDS ORDERED: Tamsulosin HCl 0.4 MG Cap PO SCH (09:00)
[2024-01-27] MEDS ORDERED: Loratadine 10 MG Tab PO SCH (09:00)
[2024-01-27] MEDS ORDERED: Atorvastatin 40 MG Tab PO SCH (09:00)
[2024-01-27] MEDS ORDERED: Enoxaparin 40 MG/0.4 ML SYR SC SCH (09:00)
[2024-01-27] MEDS ORDERED: ARIPiprazole 10 MG Tab PO SCH (09:00)
[2024-01-27 10:20] LABS: Source, Urine Clean Catch
[2024-01-27 10:25] LABS: Appearance, Urine Clear (Clear); Bilirubin, Urine Neg (Neg); Blood, Urine 3+ (Neg); Glucose Qualitative, Urine 4+ (Neg); Ketones, Urine Neg (Neg); Leukocyte Esterase, Urine Neg (Neg); Nitrite, Urine Neg (Neg); Protein, Urine 2+ (Neg); Urobilinogen, Urine NORM (Normal)
[2024-01-27 11:12] LABS: Color, Urine Pale Yellow (P-Yellow)
[2024-01-27 11:15] LABS: Bacteria Rare /hpf; Squamous Epithelial Cells Rare /hpf (Few); White Blood Cells, Urine 0-2 /hpf (0-5)
[2024-01-27 14:25] LABS: Adenovirus Not Detected (NOT DETECT); Coronavirus 229E Not Detected (NOT DETECT); Coronavirus HKU1 Not Detected (NOT DETECT); Coronavirus NL63 Not Detected (NOT DETECT); Coronavirus OC43 Not Detected (NOT DETECT); SARS-Cov-2 (COVID-19), BioFire Not Detected (NOT DETECT)
[2024-01-27 14:26] LABS: Bordetella pertussis Not Detected (NOT DETECT); Chlamydophila pneumoniae Not Detected (NOT DETECT); Human Metapneumovirus Not Detected (NOT DETECT); Human Rhinovirus/Enterovirus Detected (NOT DETECT); Influenza A/2009-H1 Not Detected (NOT DETECT); Influenza A/H1 Not Detected (NOT DETECT); Influenza A/H3 Not Detected (NOT DETECT); Influenza B Not Detected (NOT DETECT); Mycoplasma pneumoniae Not Detected (NOT DETECT); Parainfluenza Virus 1 Not Detected (NOT DETECT); Parainfluenza Virus 2 Not Detected (NOT DETECT); Parainfluenza Virus 3 Not Detected (NOT DETECT); Parainfluenza Virus 4 Not Detected (NOT DETECT); Respiratory Syncytial Virus Not Detected (NOT DETECT)
[2024-01-27 15:13] VITALS: BP 157/90
--- NOTE | 2024-01-27 15:34 | NUR ---
PT IS A&OX4, VSS AND ON RA. PT'S BLOOD SUGAR WAS HIGH FOR LUNCH READING 401. DOCTER NOTIFIED AND TREATED PER MD'S ORDERS. SLIDING SCALE WAS ADJUSTED. NO FURTHER CHANGES FOR THE PT. PT HAS NO QUESTIONS OR CONCERNS.
[2024-01-27] MEDS ORDERED: Nicotine 21 MG PATCH TOP ONE (16:30)
[2024-01-27] MEDS ORDERED: Insulin Human Lispro 100 Units/ML 3ML Syringe SC SCH (16:30)
[2024-01-27 20:13] VITALS: BP 162/94
--- NOTE | 2024-01-28 03:50 | NUR ---
SHIFT SUMMARY 63 YR M ADMITTED ON 01/26/24. FULL CODE. PT C/O IMSOMNIA THIS SHIFT AND BECAME IRRITATED AFTER ASKING FOR MORE TRAZODONE AND BEING TOLD HE HAD ALREADY TAKEN HIS DOSE. HE EXPRESSED THAT HE WANTS TO WORK ON HIS HEALTH ISSUES TO BECOME STRONGER AND MORE HEALTHY. ON AT LEAST A COUPLE OF OCCASIONS THIS SHIFT, PT CAME OUT INTO THE HALLWAY WITHOUT A MASK ALTHOUGH HE WAS REMINDED MULTIPLE TIMES THAT HE CANNOT DO THAT DUE TO TESTING POSITIVE FOR RHINOVIRUS. HE IS EASILY AGITATED AND SEEMS TO HYPERFOCUS ON HIS PERSONAL PROBLEMS. TALKING CALMLY TO HIM AND LISTENING TO WHAT HE HAS TO SAY WORKS WELL IN HELPING TO CALM HIM DOWN. HE STATES THAT HE HAS A [place] AND IS CONCERNED ABOUT HOW HE WILL GET THERE. WILL DISCUSS W/ RIMA BRANHAM.
[2024-01-28 05:00] VITALS: BP 160/148
[2024-01-28 05:24] LABS: Hematocrit 45.8 % (37.0-53.0); Hemoglobin 15.9 g/dL (13.5-17.5); Mean Corpuscular HGB 28.4 pg (26.0-34.0); Mean Corpuscular HGB Conc 34.7 g/dL (31.5-36.5); Mean Corpuscular Volume 82 fL (80-100); Mean Platelet Volume 10.2 fL (9.1-12.4); Platelet Count 436 K/mm3 (150-400); RDW Coefficient Variation 13.4 % (11.7-14.2); RDW Standard Deviation 40.1 fL (35.1-46.3); White Blood Cell Count 18.91 K/mm3 (4.00-11.30)
[2024-01-28 06:08] LABS: Magnesium, Blood 2.1 mg/dL (1.6-2.4)
[2024-01-28 06:09] LABS: Calcium, Blood 9.7 mg/dL (8.5-10.1); Creatinine, Blood 0.65 mg/dL (0.60-1.20); Phosphorus, Blood 2.8 mg/dL (2.5-4.9); Potassium, Blood 4.5 mmol/L (3.5-5.5)
[2024-01-28 08:31] VITALS: BP 179/106
[2024-01-28] MEDS ORDERED: Nicotine 21 MG PATCH TOP SCH (09:00)
[2024-01-28] MEDS ORDERED: Insulin Glargine-Yfgn 100 Unit/mL 3 ML SYR SC SCH (09:00)
--- NOTE | 2024-01-28 13:08 | NUR ---
7081 PT STEPPED INTO HALLWAY AND STATES " I AM FUCKING LEAVING, I AM NOT GOING TO KEEP WAITING AND WAITING IN THIS FUCKING PLACE" PT RETURNED TO ROOM WHEN ASKED, DISCUSSED WITH PATIENT THAT DISCHARGE INSTRUCTIONS HAD NOT BEEN PUT IN YET BY PHYSICIAN AND ASKED PT IF HE COULD WAIT WHILE I CALLED PHYSICIAN TO CHECK ON WHEN ORDERS MAY BE AVAILABLE. THIS RN CHECKED COMPUTER FOR ORDERS AND FOUND THEY HAD JUST BEEN PLACED. DISCUSSED WITH PATIENT IF HE WOULD WAIT 10 MINUTES I WULD HAVE PRESCRIPTIONS AND INSTRUCTIONS READY FOR HIM AND HE COULD THEN DISCHARGE. PT AGAIN STATES "IM NOT WAITING ANY LONGER IN THIS FUCKING PLACE" AMA FORM SIGNED BY PT AFTER RISKS DISCUSSED WITH PT. DISCUSSED WITH PATIENT IF HIS SYMPTOMS WORSEN HE SHOULD RETURN TO THE EMERGENCY ROOM. PT DECLINED WHEELCHAIR AND AMBULATED OUT OF ROOM, STATES HE WILL "WALK TO [facility] AND MEET A FRIEND"
--- NOTE | 2024-01-28 13:08 | NUR ---
PT LEFT AMA PRIOR TO GETTING HIS DISCHARGE INSTRUCTIONS. CALL PLACED TO SAM AND SPOKE TO HIM OVER THE PHONE. SAM REQUESTED PRESCRIPTIONS BE SENT TO [facility]. EDUCATED PT ON HIS DISCHARGE MEDICATIONS OVER THE PHONE. ADIVSED HIM TO STOP TAKING HIS LISINOPRIL AND OLMESARTAN. SAM REEVES. ADVISED SAM TO CALL AND MAKE APPOINTEMENT WITH HIS PCP AND FOLLOW-UP IN ONE WEEK. PT V/U. FAXED MEDICATION LIST TO [facility] HE REQUESTED.
--- NOTE | 2024-01-28 13:22 | NUR ---
[address] BUCKNER OF PATIENT LEAVING PRIOR TO RECEIVING DISCHARGE INSTRUCTIONS OR MEDICATIONS BEING SENT TO PHARMACY OF CHOICE
== END 2024-01-28 12:50 | disposition left against medical advice (07) | DRG 193 ==
LOC: ER 04:06 → ERHOLD 04:07 → MEDS 12:07
PROVIDERS: Emergency Medicine; ADMIT Hospitalist
DX: J12.89 Other viral pneumonia (principal); J96.01 Acute respiratory failure with hypoxia; J44.1 Chronic obstructive pulmonary disease with (acute) exacerbation; J44.0 Chronic obstructive pulmonary disease with (acute) lower respiratory infection; I48.91 Unspecified atrial fibrillation; F32.A Depression, unspecified; G47.33 Obstructive sleep apnea (adult) (pediatric); E11.9 Type 2 diabetes mellitus without complications; I25.10 Atherosclerotic heart disease of native coronary artery without angina pectoris; M10.9 Gout, unspecified; L40.9 Psoriasis, unspecified; F17.210 Nicotine dependence, cigarettes, uncomplicated; F41.9 Anxiety disorder, unspecified; I10 Essential (primary) hypertension; E78.5 Hyperlipidemia, unspecified; B97.89 Other viral agents as the cause of diseases classified elsewhere; G43.909 Migraine, unspecified, not intractable, without status migrainosus; M06.9 Rheumatoid arthritis, unspecified; Z79.2 Long term (current) use of antibiotics; Z79.899 Other long term (current) drug therapy; Z79.891 Long term (current) use of opiate analgesic; Z79.01 Long term (current) use of anticoagulants; Z79.811 Long term (current) use of aromatase inhibitors; I25.2 Old myocardial infarction; Z88.8 Allergy status to other drugs, medicaments and biological substances; Z90.49 Acquired absence of other specified parts of digestive tract; Z98.890 Other specified postprocedural states; Z90.89 Acquired absence of other organs
CPT/HCPCS: 0202U; 0241U; 36415; 71046; 80048; 80053; 81001; 82947; 83036; 83735; 84100; 84484; 85025; 85027; 93005; 93010; 94640; 94664; 94762; 96361; 96374; 96375; 96376; 99284-25; A9270; G0378; J0456; J0696; J1815; J2919; J7030; J7050; J7512

== ENCOUNTER 2024-06-01 20:54 | Emergency (ER) | payer OTHER ==
[~2024-06-01] VITALS: Ht 170.2 cm; Wt 113.4 kg
[2024-06-01 21:59] VITALS: BP 186/97
[2024-06-01] MEDS ORDERED: Triamcinolone A15 G4 TOP (22:57)
== END 2024-06-01 23:00 | disposition home or self-care (01) ==
LOC: ER 20:54
DX: L40.8 Other psoriasis (principal); I10 Essential (primary) hypertension; I48.91 Unspecified atrial fibrillation; G47.30 Sleep apnea, unspecified; E11.9 Type 2 diabetes mellitus without complications; J44.9 Chronic obstructive pulmonary disease, unspecified; F17.210 Nicotine dependence, cigarettes, uncomplicated; Z88.8 Allergy status to other drugs, medicaments and biological substances; Z79.899 Other long term (current) drug therapy
CPT/HCPCS: 99282

== ENCOUNTER 2024-06-15 13:13 | Emergency (ER) | payer OTHER ==
[~2024-06-15] VITALS: Ht 177.8 cm; Wt 113.4 kg
[~2024-06-15 13:13] MED LIST changes: +Triamcinolone A15 G4 TOP
[2024-06-15 13:42] VITALS: BP 188/93
[2024-06-15 14:10] LABS: Albumin, Blood 3.6 g/dL (3.4-5.0); Albumin/Globulin Ratio 1.1 (0.8-1.8); Bilirubin, Total 0.5 mg/dL (0.1-1.0); Bun/Creatinine Ratio 12.8 (12.0-20.0); Calcium, Blood 8.8 mg/dL (8.5-10.1); Creatinine, Blood 0.7 mg/dL (0.60-1.20); Globulin, Blood 3.3 g/dL (2.2-4.0); Potassium, Blood 3.9 mmol/L (3.5-5.5); Total Protein, Blood 6.9 g/dL (6.4-8.2)
[2024-06-15 14:12] LABS: BASOPHILS ABSOLUTE AUTO 0.07 K/mm3 (0.00-0.23); BASOPHILS PERCENT AUTO 1 % (0-2); EOSINOPHILS ABSOLUTE AUTO 0.77 K/mm3 (0.00-0.68); EOSINOPHILS PERCENT AUTO 8 % (0-6); Hematocrit 48.7 % (37.0-53.0); Hemoglobin 16.5 g/dL (13.5-17.5); IMMATURE GRAN ABSOLUTE AUTO 0.04 K/mm3 (0.00-0.10); IMMATURE GRAN PERCENT AUTO 0 % (0-1); LYMPHOCYTES ABSOLUTE AUTO 1.38 K/mm3 (0.84-5.20); LYMPHOCYTES PERCENT AUTO 14 % (21-46); MONOCYTES ABSOLUTE AUTO 0.78 K/mm3 (0.16-1.47); MONOCYTES PERCENT AUTO 8 % (4-13); Mean Corpuscular HGB 29.3 pg (26.0-34.0); Mean Corpuscular HGB Conc 33.9 g/dL (31.5-36.5); Mean Corpuscular Volume 86 fL (80-100); Mean Platelet Volume 10.7 fL (9.1-12.4); NEUTROPHILS ABSOLUTE AUTO 7.01 K/mm3 (1.96-9.15); NEUTROPHILS PERCENT AUTO 70 % (41-73); Platelet Count 294 K/mm3 (150-400); RDW Coefficient Variation 13.9 % (11.7-14.2); RDW Standard Deviation 43.9 fL (35.1-46.3); Red Blood Cell Count 5.64 M/mm3 (4.30-5.90); White Blood Cell Count 10.05 K/mm3 (4.00-11.30)
== END 2024-06-15 16:00 | disposition home or self-care (01) ==
LOC: ER 13:13
PROVIDERS: Physician Assistant
DX: E11.65 Type 2 diabetes mellitus with hyperglycemia (principal); I10 Essential (primary) hypertension; R53.83 Other fatigue; I25.10 Atherosclerotic heart disease of native coronary artery without angina pectoris; I25.2 Old myocardial infarction; J44.9 Chronic obstructive pulmonary disease, unspecified; F17.210 Nicotine dependence, cigarettes, uncomplicated; Z79.899 Other long term (current) drug therapy; Z88.8 Allergy status to other drugs, medicaments and biological substances; Z88.6 Allergy status to analgesic agent; Z79.02 Long term (current) use of antithrombotics/antiplatelets
CPT/HCPCS: 70450; 71046; 80053; 85025; 93005; 93010; 99285-25

== ENCOUNTER 2024-06-29 07:17 | Emergency (ER) | payer OTHER ==
[~2024-06-29] VITALS: Ht 177.8 cm; Wt 113.4 kg
[2024-06-29 07:27] VITALS: BP 187/119
[2024-06-29 07:56] LABS: BASOPHILS PERCENT AUTO 1 % (0-2); EOSINOPHILS ABSOLUTE AUTO 0.94 K/mm3 (0.00-0.68); EOSINOPHILS PERCENT AUTO 7 % (0-6); Hematocrit 49.6 % (37.0-53.0); Hemoglobin 17.1 g/dL (13.5-17.5); IMMATURE GRAN ABSOLUTE AUTO 0.11 K/mm3 (0.00-0.10); IMMATURE GRAN PERCENT AUTO 1 % (0-1); LYMPHOCYTES ABSOLUTE AUTO 0.85 K/mm3 (0.84-5.20); LYMPHOCYTES PERCENT AUTO 7 % (21-46); MONOCYTES ABSOLUTE AUTO 0.89 K/mm3 (0.16-1.47); MONOCYTES PERCENT AUTO 7 % (4-13); Mean Corpuscular HGB 28.6 pg (26.0-34.0); Mean Corpuscular HGB Conc 34.5 g/dL (31.5-36.5); Mean Corpuscular Volume 83 fL (80-100); NEUTROPHILS ABSOLUTE AUTO 9.83 K/mm3 (1.96-9.15); NEUTROPHILS PERCENT AUTO 77 % (41-73); RDW Coefficient Variation 14.1 % (11.7-14.2); RDW Standard Deviation 42.5 fL (35.1-46.3); Red Blood Cell Count 5.98 M/mm3 (4.30-5.90); White Blood Cell Count 12.72 K/mm3 (4.00-11.30)
[2024-06-29 08:06] LABS: Albumin, Blood 3.9 g/dL (3.4-5.0); Bilirubin, Total 0.6 mg/dL (0.1-1.0); Bun/Creatinine Ratio 11.5 (12.0-20.0); Calcium, Blood 8.8 mg/dL (8.5-10.1); Creatinine, Blood 0.87 mg/dL (0.60-1.20); Potassium, Blood 4.1 mmol/L (3.5-5.5); Total Protein, Blood 7.9 g/dL (6.4-8.2)
[2024-06-29 08:20] LABS: Mean Platelet Volume 10.2 fL (9.1-12.4); Platelet Count 332 K/mm3 (150-400)
== END 2024-06-29 08:58 | disposition home or self-care (01) ==
LOC: ER 07:17
PROVIDERS: Emergency Medicine
DX: R53.1 Weakness (principal); I10 Essential (primary) hypertension; J44.9 Chronic obstructive pulmonary disease, unspecified; F17.210 Nicotine dependence, cigarettes, uncomplicated; Z88.0 Allergy status to penicillin; Z79.899 Other long term (current) drug therapy; I48.91 Unspecified atrial fibrillation; E11.9 Type 2 diabetes mellitus without complications; G47.33 Obstructive sleep apnea (adult) (pediatric); Z59.00 Homelessness unspecified
CPT/HCPCS: 80053; 84484; 85025; 93005; 93010; 99285-25

== ENCOUNTER 2024-07-14 13:58 | Emergency (ER) | payer OTHER ==
[~2024-07-14] VITALS: Ht 177.8 cm; Wt 145.2 kg
[~2024-07-14 13:58] MED LIST changes: +ONDA4 PO
[2024-07-14 15:46] LABS: BASOPHILS ABSOLUTE AUTO 0.08 K/mm3 (0.00-0.23); BASOPHILS PERCENT AUTO 1 % (0-2); EOSINOPHILS ABSOLUTE AUTO 1.54 K/mm3 (0.00-0.68); EOSINOPHILS PERCENT AUTO 11 % (0-6); Hematocrit 46.3 % (37.0-53.0); Hemoglobin 15.6 g/dL (13.5-17.5); IMMATURE GRAN ABSOLUTE AUTO 0.07 K/mm3 (0.00-0.10); IMMATURE GRAN PERCENT AUTO 1 % (0-1); LYMPHOCYTES ABSOLUTE AUTO 1.27 K/mm3 (0.84-5.20); LYMPHOCYTES PERCENT AUTO 9 % (21-46); MONOCYTES ABSOLUTE AUTO 1.09 K/mm3 (0.16-1.47); MONOCYTES PERCENT AUTO 8 % (4-13); Mean Corpuscular HGB Conc 33.7 g/dL (31.5-36.5); Mean Corpuscular Volume 86 fL (80-100); Mean Platelet Volume 10.2 fL (9.1-12.4); NEUTROPHILS PERCENT AUTO 72 % (41-73); Platelet Count 333 K/mm3 (150-400); RDW Coefficient Variation 14.8 % (11.7-14.2); RDW Standard Deviation 46.5 fL (35.1-46.3); Red Blood Cell Count 5.38 M/mm3 (4.30-5.90); White Blood Cell Count 14.25 K/mm3 (4.00-11.30)
[2024-07-14 16:18] LABS: Albumin, Blood 3.5 g/dL (3.4-5.0); Albumin/Globulin Ratio 0.9 (0.8-1.8); Bilirubin, Total 0.3 mg/dL (0.1-1.0); Bun/Creatinine Ratio 13.7 (12.0-20.0); Calcium, Blood 8.5 mg/dL (8.5-10.1); Creatinine, Blood 0.95 mg/dL (0.60-1.20); Magnesium, Blood 1.9 mg/dL (1.6-2.4); Potassium, Blood 3.9 mmol/L (3.5-5.5); Total Protein, Blood 7.5 g/dL (6.4-8.2)
[2024-07-14 18:41] VITALS: BP 140/79
[2024-07-14] MEDS ORDERED: LOPE2C PO (18:41)
[2024-07-14] MEDS ORDERED: Loperamide HCl 2 MG Cap PO ONE (19:00)
== END 2024-07-14 18:55 | disposition home or self-care (01) ==
LOC: ER 13:58
PROVIDERS: Emergency Medicine
DX: R19.7 Diarrhea, unspecified (principal); I48.91 Unspecified atrial fibrillation; G47.30 Sleep apnea, unspecified; G43.909 Migraine, unspecified, not intractable, without status migrainosus; I25.2 Old myocardial infarction; J44.9 Chronic obstructive pulmonary disease, unspecified; E11.9 Type 2 diabetes mellitus without complications; I10 Essential (primary) hypertension; F17.210 Nicotine dependence, cigarettes, uncomplicated; Z79.899 Other long term (current) drug therapy; Z88.6 Allergy status to analgesic agent
CPT/HCPCS: 80053; 83690; 83735; 85025; 99284; A9270

== ENCOUNTER 2024-08-09 01:45 | Emergency (ER) | payer OTHER ==
[~2024-08-09] VITALS: Ht 165.1 cm; Wt 113.4 kg
[2024-08-09] MEDS ORDERED: CEPH500 PO (06:25)
[2024-08-09] MEDS ORDERED: Cephalexin Monohydrate 500 MG Cap PO ONE (06:25)
[2024-08-09] MEDS ORDERED: Diphth,Pertuss(Acell),Tet Vac 0.5 ML VIAL IM ONE (06:35)
[2024-08-09 11:16] VITALS: BP 158/90
[2024-08-09] MEDS ORDERED: BENADRYL25 MG PO (20:24)
[2024-08-11] MEDS ORDERED: GABA300 PO (15:06)
== END 2024-08-09 11:28 | disposition home or self-care (01) ==
LOC: ER 01:45
DX: S90.562A Insect bite (nonvenomous), left ankle, initial encounter (principal); S90.561A Insect bite (nonvenomous), right ankle, initial encounter; S40.862A Insect bite (nonvenomous) of left upper arm, initial encounter; S40.861A Insect bite (nonvenomous) of right upper arm, initial encounter; G47.30 Sleep apnea, unspecified; L03.119 Cellulitis of unspecified part of limb; G43.909 Migraine, unspecified, not intractable, without status migrainosus; Z59.19 Other inadequate housing; G47.33 Obstructive sleep apnea (adult) (pediatric); E11.9 Type 2 diabetes mellitus without complications; I10 Essential (primary) hypertension; J44.9 Chronic obstructive pulmonary disease, unspecified; F17.210 Nicotine dependence, cigarettes, uncomplicated; I25.2 Old myocardial infarction; I48.91 Unspecified atrial fibrillation; Z59.89 Other problems related to housing and economic circumstances; Z23 Encounter for immunization; Z79.899 Other long term (current) drug therapy; Z88.6 Allergy status to analgesic agent; W57.XXXA Bitten or stung by nonvenomous insect and other nonvenomous arthropods, initial encounter
CPT/HCPCS: 82947; 90471; 90715; 99281; 99283-25; A9270

== ENCOUNTER 2024-08-09 20:08 | Emergency (ER) | payer OTHER ==
[~2024-08-09] VITALS: Ht 167.6 cm; Wt 127.0 kg
[2024-08-09] MEDS ORDERED: DiphenhydrAMINE HCL 25 MG Cap PO ONE (20:20)
[2024-08-09] MEDS ORDERED: BENADRYL25 MG PO (20:24)
[2024-08-09 20:30] VITALS: BP 139/70
[2024-08-11] MEDS ORDERED: GABA300 PO (15:06)
== END 2024-08-09 20:34 | disposition home or self-care (01) ==
LOC: ER 20:08
DX: S40.862A Insect bite (nonvenomous) of left upper arm, initial encounter (principal); S40.861A Insect bite (nonvenomous) of right upper arm, initial encounter; I48.91 Unspecified atrial fibrillation; G47.30 Sleep apnea, unspecified; E11.9 Type 2 diabetes mellitus without complications; G43.909 Migraine, unspecified, not intractable, without status migrainosus; I10 Essential (primary) hypertension; I25.2 Old myocardial infarction; J44.9 Chronic obstructive pulmonary disease, unspecified; W57.XXXA Bitten or stung by nonvenomous insect and other nonvenomous arthropods, initial encounter; Z79.899 Other long term (current) drug therapy; Z88.6 Allergy status to analgesic agent
CPT/HCPCS: 99281; A9270

== ENCOUNTER 2024-08-11 09:55 | Emergency (ER) | payer OTHER ==
[~2024-08-11] VITALS: Ht 177.8 cm; Wt 124.7 kg
[~2024-08-11 09:55] MED LIST changes: +BENADRYL25 MG PO
[2024-08-11] MEDS ORDERED: Magnesium Sulf 2 GM/Water 50ML 50 ML IV ONE (10:45)
[2024-08-11 10:53] LABS: BASOPHILS ABSOLUTE AUTO 0.09 K/mm3 (0.00-0.23); BASOPHILS PERCENT AUTO 1 % (0-2); EOSINOPHILS ABSOLUTE AUTO 1.07 K/mm3 (0.00-0.68); EOSINOPHILS PERCENT AUTO 8 % (0-6); Hematocrit 39.8 % (37.0-53.0); Hemoglobin 13.5 g/dL (13.5-17.5); IMMATURE GRAN ABSOLUTE AUTO 0.07 K/mm3 (0.00-0.10); IMMATURE GRAN PERCENT AUTO 1 % (0-1); LYMPHOCYTES PERCENT AUTO 8 % (21-46); MONOCYTES ABSOLUTE AUTO 1.29 K/mm3 (0.16-1.47); MONOCYTES PERCENT AUTO 10 % (4-13); Mean Corpuscular HGB 28.3 pg (26.0-34.0); Mean Corpuscular HGB Conc 33.9 g/dL (31.5-36.5); Mean Corpuscular Volume 83 fL (80-100); Mean Platelet Volume 9.8 fL (9.1-12.4); NEUTROPHILS ABSOLUTE AUTO 9.38 K/mm3 (1.96-9.15); NEUTROPHILS PERCENT AUTO 73 % (41-73); Platelet Count 327 K/mm3 (150-400); RDW Standard Deviation 45.2 fL (35.1-46.3); Red Blood Cell Count 4.77 M/mm3 (4.30-5.90)
[2024-08-11 11:20] LABS: Albumin, Blood 3.7 g/dL (3.4-5.0); Albumin/Globulin Ratio 0.8 (0.8-1.8); Bilirubin, Total 0.8 mg/dL (0.1-1.0); Creatinine, Blood 0.84 mg/dL (0.60-1.20); Globulin, Blood 4.4 g/dL (2.2-4.0); Potassium, Blood 3.8 mmol/L (3.5-5.5); Total Protein, Blood 8.1 g/dL (6.4-8.2)
[2024-08-11 11:27] LABS: Source, Urine Clean Catch
[2024-08-11 12:36] VITALS: BP 140/86
[2024-08-11 12:59] LABS: Appearance, Urine Clear (Clear); Bilirubin, Urine Neg (Neg); Blood, Urine 2+ (Neg); Color, Urine Yellow (P-Yellow); Glucose Qualitative, Urine Neg (Neg); Ketones, Urine 2+ (Neg); Leukocyte Esterase, Urine Neg (Neg); Nitrite, Urine Neg (Neg); Protein, Urine 3+ (Neg); Specific Gravity, Urine 1.015 (1.003-1.022); Urobilinogen, Urine 1+ (Normal)
[2024-08-11 13:13] LABS: Bacteria Not Seen /hpf; Squamous Epithelial Cells Not Seen /hpf (Few); White Blood Cells, Urine 0-2 /hpf (0-5)
[2024-08-11 13:17] LABS: U Amphetamine Screen Not Detected; U Barbituate Screen Not Detected; U Benzodiazapine Screen Not Detected; U Buprenorphine Screen Not Detected; U Cannabinoids Screen Not Detected; U Cocaine Screen Not Detected; U Methadone Screen Not Detected; U Methamphetamine Screen Not Detected; U Opiates Screen Not Detected; U Oxycodone Screen Not Detected; U Phencyclidine Screen Not Detected
[2024-08-11] MEDS ORDERED: LISI20 PO (15:06)
[2024-08-11] MEDS ORDERED: Hydrochlorothia50 MG PO (15:06)
[2024-08-11] MEDS ORDERED: BUPROPION XL150 M1 PO (15:06)
[2024-08-11] MEDS ORDERED: GABA300 PO ×2 (15:06→15:10)
[2024-08-11] MEDS ORDERED: Bisoprolol Fumar5 MG PO (15:06)
[2024-08-11] MEDS ORDERED: AMLO10 PO (15:06)
[2024-08-11] MEDS ORDERED: Glipizide ER2.5 MG PO (15:06)
[2024-08-11] MEDS ORDERED: Desyrel150 MG PO (15:06)
[2024-08-11] MEDS ORDERED: Toprol Xl200 MG PO (15:06)
== END 2024-08-11 15:20 | disposition home or self-care (01) ==
LOC: ER 09:55
PROVIDERS: Student in an Organized Health Care Education/Training Program
DX: Z76.0 Encounter for issue of repeat prescription (principal); R00.0 Tachycardia, unspecified; I48.91 Unspecified atrial fibrillation; E11.9 Type 2 diabetes mellitus without complications; I10 Essential (primary) hypertension; I25.10 Atherosclerotic heart disease of native coronary artery without angina pectoris; I25.2 Old myocardial infarction; J44.9 Chronic obstructive pulmonary disease, unspecified; F17.210 Nicotine dependence, cigarettes, uncomplicated; Z88.6 Allergy status to analgesic agent; Z79.899 Other long term (current) drug therapy; Z79.01 Long term (current) use of anticoagulants
CPT/HCPCS: 36415; 71045; 80053; 81001; 82947; 83605; 83690; 84484; 85025; 93005; 93010; 96365; 96366; 99284-25; J3475

== ENCOUNTER 2024-08-16 14:28 | Observation (INO) | payer OTHER ==
[~2024-08-16] VITALS: Ht 175.3 cm; Wt 123.5 kg
[~2024-08-16 14:28] MED LIST changes: +Bisoprolol Fumar5 MG PO; +Desyrel150 MG PO; +Glipizide ER2.5 MG PO; +Hydrochlorothia50 MG PO; +Toprol Xl200 MG PO
[2024-08-16 15:28] LABS: BASOPHILS ABSOLUTE AUTO 0.07 K/mm3 (0.00-0.23); BASOPHILS PERCENT AUTO 1 % (0-2); EOSINOPHILS ABSOLUTE AUTO 1.29 K/mm3 (0.00-0.68); EOSINOPHILS PERCENT AUTO 11 % (0-6); Hematocrit 35.9 % (37.0-53.0); Hemoglobin 11.9 g/dL (13.5-17.5); IMMATURE GRAN ABSOLUTE AUTO 0.05 K/mm3 (0.00-0.10); IMMATURE GRAN PERCENT AUTO 0 % (0-1); LYMPHOCYTES ABSOLUTE AUTO 0.96 K/mm3 (0.84-5.20); LYMPHOCYTES PERCENT AUTO 8 % (21-46); MONOCYTES ABSOLUTE AUTO 0.99 K/mm3 (0.16-1.47); MONOCYTES PERCENT AUTO 8 % (4-13); Mean Corpuscular HGB Conc 33.1 g/dL (31.5-36.5); Mean Corpuscular Volume 86 fL (80-100); NEUTROPHILS ABSOLUTE AUTO 8.55 K/mm3 (1.96-9.15); NEUTROPHILS PERCENT AUTO 72 % (41-73); NRBC ABSOLUTE 0.00 K/mm3 (0.00-0.02); NRBC Auto 0.0 /100 WBC (0.0-0.2); Platelet Count 365 K/mm3 (150-400); RDW Coefficient Variation 14.6 % (11.7-14.2); RDW Standard Deviation 45.6 fL (35.1-46.3)
[2024-08-16 15:54] LABS: Alanine Aminotransfer (ALT/SGP 26.0 U/L (12-78); Albumin, Blood 2.9 g/dL (3.4-5.0); Albumin/Globulin Ratio 0.7 (0.8-1.8); Anion Gap 8.0 mmol/L (3-11); Aspartate Aminotrans (AST/SGOT 26.0 U/L (12-37); Bilirubin, Total 0.3 mg/dL (0.1-1.0); Blood Urea Nitrogen 10.0 mg/dL (8-24); CO2, Blood 28.0 mmol/L (21-32); Calcium, Blood 8.3 mg/dL (8.5-10.1); Chloride, Blood 102.0 mmol/L (98-108); Creatinine, Blood 0.78 mg/dL (0.60-1.20); Globulin, Blood 4.3 g/dL (2.2-4.0); Glucose, Blood 418.0 mg/dL (70-99); Potassium, Blood 3.9 mmol/L (3.5-5.5); Sodium, Blood 134.0 mmol/L (136-145); Total Protein, Blood 7.2 g/dL (6.4-8.2)
[2024-08-16] MEDS ORDERED: NS 1,000 ML IV SCH ×2 (15:55→20:05)
[2024-08-16] MEDS ORDERED: Mag Sulfate 1 GM/D5% 100ML 100 ML IV ONE ×2 (15:55→23:05)
[2024-08-16 17:35] LABS: Ethanol (Alcohol), Blood, Med <3 mg/dL; Magnesium, Blood 1.9 mg/dL (1.6-2.4)
[2024-08-16 17:56] LABS: U Amphetamine Screen Not Detected; U Barbituate Screen Not Detected; U Benzodiazapine Screen Not Detected; U Cannabinoids Screen Not Detected; U Cocaine Screen Not Detected; U Methadone Screen Not Detected; U Methamphetamine Screen Not Detected; U Opiates Screen Not Detected; U Phencyclidine Screen Not Detected
[2024-08-16 17:57] LABS: U Buprenorphine Screen Not Detected; U Oxycodone Screen Not Detected
[2024-08-16 18:19] LABS: pH Blood Venous 7.34 (7.34-7.37)
[2024-08-16] MEDS ORDERED: Albuterol 2.5 MG/3 ML VIAL INH PRN (20:00)
[2024-08-16] MEDS ORDERED: Ondansetron HCl 2 MG / ML 2ML Vial IV PRN (20:05)
[2024-08-16] MEDS ORDERED: Formoterol/Mometasone MDI 5/200 mcg 13 GM INH SCH (20:10)
[2024-08-16] MEDS ORDERED: Mag Sulfate 1 GM/D5% 100ML 100 ML IV STA (20:12)
[2024-08-16] MEDS ORDERED: Insulin Human Lispro 100 Units/ML 3ML Syringe SC SCH (21:00)
[2024-08-16] MEDS ORDERED: Trimethoprim/Sulfamethoxazole DS Tab PO SCH (21:00)
[2024-08-16] MEDS ORDERED: Lactobacil 2-S.Thermo-Bifido 1 1 Cap PO SCH (21:00)
[2024-08-16 21:30] VITALS: BP 151/95
[2024-08-16] MEDS ORDERED: CENTRUM SILVER1 EAC2 PO (21:50)
[2024-08-16] MEDS ORDERED: GLIP5 PO (22:50)
[2024-08-17 00:17] VITALS: BP 138/85
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
[2024-08-17 04:17] VITALS: BP 151/89
[2024-08-17 04:57] LABS: Hematocrit 36.6 % (37.0-53.0); Hemoglobin 12.2 g/dL (13.5-17.5); Mean Corpuscular HGB Conc 33.3 g/dL (31.5-36.5); Mean Corpuscular Volume 86 fL (80-100); NRBC ABSOLUTE 0.00 K/mm3 (0.00-0.02); NRBC Auto 0.0 /100 WBC (0.0-0.2); Platelet Count 372 K/mm3 (150-400); RDW Coefficient Variation 14.7 % (11.7-14.2); RDW Standard Deviation 46.2 fL (35.1-46.3)
[2024-08-17 05:36] LABS: Alanine Aminotransfer (ALT/SGP 24.0 U/L (12-78); Albumin, Blood 3.0 g/dL (3.4-5.0); Albumin/Globulin Ratio 0.7 (0.8-1.8); Anion Gap 7.0 mmol/L (3-11); Aspartate Aminotrans (AST/SGOT 21.0 U/L (12-37); Bilirubin, Total 0.6 mg/dL (0.1-1.0); Blood Urea Nitrogen 8.0 mg/dL (8-24); CO2, Blood 27.0 mmol/L (21-32); Calcium, Blood 8.2 mg/dL (8.5-10.1); Chloride, Blood 106.0 mmol/L (98-108); Creatinine, Blood 0.69 mg/dL (0.60-1.20); Globulin, Blood 4.3 g/dL (2.2-4.0); Glucose, Blood 156.0 mg/dL (70-99); Magnesium, Blood 2.2 mg/dL (1.6-2.4); Potassium, Blood 4.0 mmol/L (3.5-5.5); Sodium, Blood 136.0 mmol/L (136-145); Total Protein, Blood 7.3 g/dL (6.4-8.2)
[2024-08-17 07:36] VITALS: BP 152/81
[2024-08-17 11:11] VITALS: BP 150/80
[2024-08-17 16:01] VITALS: BP 134/83
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
[2024-08-17 19:58] VITALS: BP 120/68
[2024-08-18 04:05] VITALS: BP 128/64
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
[2024-08-18 07:14] VITALS: BP 138/81
[2024-08-18 11:21] VITALS: BP 113/74
[2024-08-18] MEDS ORDERED: HYDPAM50 PO (11:28)
[2024-08-18] MEDS ORDERED: MELA3 PO (11:29)
[2024-08-18] MEDS ORDERED: SULTRIDS PO (11:29)
[2024-08-18] MEDS ORDERED: TRAZ100 PO (11:30)
[2024-08-18] MEDS ORDERED: VISBIOME 112.51 EACH PO (11:31)
[2024-08-18 11:46] LABS: BASOPHILS ABSOLUTE AUTO 0.10 K/mm3 (0.00-0.23); BASOPHILS PERCENT AUTO 1 % (0-2); EOSINOPHILS ABSOLUTE AUTO 0.72 K/mm3 (0.00-0.68); EOSINOPHILS PERCENT AUTO 7 % (0-6); Hematocrit 36.2 % (37.0-53.0); Hemoglobin 11.8 g/dL (13.5-17.5); IMMATURE GRAN ABSOLUTE AUTO 0.07 K/mm3 (0.00-0.10); IMMATURE GRAN PERCENT AUTO 1 % (0-1); LYMPHOCYTES ABSOLUTE AUTO 1.47 K/mm3 (0.84-5.20); LYMPHOCYTES PERCENT AUTO 14 % (21-46); MONOCYTES ABSOLUTE AUTO 1.01 K/mm3 (0.16-1.47); MONOCYTES PERCENT AUTO 10 % (4-13); Mean Corpuscular HGB Conc 32.6 g/dL (31.5-36.5); Mean Corpuscular Volume 85 fL (80-100); NEUTROPHILS ABSOLUTE AUTO 7.26 K/mm3 (1.96-9.15); NEUTROPHILS PERCENT AUTO 68 % (41-73); NRBC ABSOLUTE 0.00 K/mm3 (0.00-0.02); NRBC Auto 0.0 /100 WBC (0.0-0.2); Platelet Count 360 K/mm3 (150-400); RDW Coefficient Variation 14.6 % (11.7-14.2); RDW Standard Deviation 45.3 fL (35.1-46.3)
[2024-08-18 12:05] LABS: Anion Gap 8.0 mmol/L (3-11); Blood Urea Nitrogen 10.0 mg/dL (8-24); CO2, Blood 25.0 mmol/L (21-32); Calcium, Blood 8.6 mg/dL (8.5-10.1); Chloride, Blood 104.0 mmol/L (98-108); Creatinine, Blood 0.93 mg/dL (0.60-1.20); Glucose, Blood 141.0 mg/dL (70-99); Potassium, Blood 4.3 mmol/L (3.5-5.5); Sodium, Blood 133.0 mmol/L (136-145)
== END 2024-08-18 12:52 | disposition home or self-care (01) ==
LOC: ER 14:28 → MEDS 21:10
PROVIDERS: Emergency Medicine; Internal Medicine; Nurse Practitioner Acute Care; Student in an Organized Health Care Education/Training Program; ADMIT Student in an Organized Health Care Education/Training Program
DX: R55 Syncope and collapse (principal); G47.33 Obstructive sleep apnea (adult) (pediatric); I48.0 Paroxysmal atrial fibrillation; I10 Essential (primary) hypertension; I25.10 Atherosclerotic heart disease of native coronary artery without angina pectoris; J44.9 Chronic obstructive pulmonary disease, unspecified; M06.9 Rheumatoid arthritis, unspecified; M10.9 Gout, unspecified; E11.65 Type 2 diabetes mellitus with hyperglycemia; F41.8 Other specified anxiety disorders; Z59.02 Unsheltered homelessness; Z79.01 Long term (current) use of anticoagulants; Z79.899 Other long term (current) drug therapy; Z88.6 Allergy status to analgesic agent
CPT/HCPCS: 36415; 70450; 71260; 72125; 73610; 74177; 80048; 80053; 80320; 82010; 82803; 82947; 83605; 83735; 83880; 84484; 85025; 85027; 86850; 86900; 86901; 87040; 93005; 93010; 94640; 94664; 94762; 96361; 96365-59; 96366; 99285-25; A9270; G0378; J3475; J7030; Q9967